=== PATIENT | female | born 1975 | race Caucasian/White ===

== ENCOUNTER 2018-11-06 08:00 | Inpatient (IN) | payer BC ==
[2018-11-14 13:29] VITALS: BMI 26.6
[2018-11-15] MEDS ORDERED: BUPIVACAINE LIPOSOME/PF (EXPAREL) 266 MG/20 ML VIAL ONE ×2 (12:43→14:09)
[2018-11-15] MEDS ORDERED: BUPIVACAINE HCL/PF 0.25% (2.5MG/ML) 10 ML VIAL ONE (12:44)
[2018-11-15] MEDS ORDERED: HEPARIN NA (PORCINE) 5,000 UNITS/ML 1ML VIAL ONE (12:44)
[2018-11-15] MEDS ORDERED: ceFAZolin SODIUM 1 GM VIAL IVPB ONE ×3 (13:50→14:50)
[2018-11-15] MEDS ORDERED: VANCOMYCIN 1,000 MG VIAL (RESTRICTED TO ID ONLY) IVPB ONE (14:05)
[2018-11-15] MEDS ORDERED: BUPIVACAINE HCL/PF 0.5% (5MG/ML) 10 ML VIAL ONE ×2 (14:09→14:36)
[2018-11-15] MEDS ORDERED: MIDAZOLAM HCL 2 MG/2 ML SINGLE DOSE VIAL ONE ×2 (14:13)
[2018-11-15] MEDS ORDERED: MORPHINE 5 MG/10 ML AMP - FOR COMPOUNDING USE ONLY ONE (14:25)
[2018-11-15] MEDS ORDERED: PROPOFOL 20 ML ONE ×15 (14:27→15:47)
[2018-11-15] MEDS ORDERED: LIDOCAINE HCL/PF 2% SDV 5ML VIAL ONE (14:28)
[2018-11-15] MEDS ORDERED: ROCURONIUM BROMIDE 50 MG/5 ML VIAL ONE (14:28)
[2018-11-15] MEDS ORDERED: DESFLURANE GAS 240 ML BOTTLE IH ONE (14:30)
[2018-11-15] MEDS ORDERED: VANCOMYCIN 1,000 MG VIAL (RESTRICTED TO ID ONLY) ONE (15:04)
[2018-11-15] MEDS ORDERED: ceFAZolin SODIUM 1 GM VIAL ONE ×2 (15:04→17:55)
[2018-11-15] MEDS ORDERED: DEXAMETHASONE SOD PHOSPHATE 4 MG/1 ML VIAL ONE (15:04)
[2018-11-15] MEDS ORDERED: ONDANSETRON 4 MG/2 ML VIAL ONE (15:04)
[2018-11-15] MEDS ORDERED: morphine SULFATE/Preservative Free 0.5 MG/ML (1cc Syringe) IT ONE (15:24)
[2018-11-15] MEDS ORDERED: ONDANSETRON 4 MG/2 ML VIAL IVPUSH PRN ×3 (15:24→18:51)
[2018-11-15] MEDS ORDERED: NALOXONE HCL 0.4 MG/ML VIAL IVPUSH PRN (15:24)
[2018-11-15] MEDS ORDERED: ACETAMINOPHEN 325 MG TABLET (FP) PO SCH (15:30)
[2018-11-15] MEDS ORDERED: LACTATED RINGERS SOLUTION 1,000 ML IV SCH (15:30)
[2018-11-15] MEDS ORDERED: GLYCOPYRROLATE 0.2 MG/1 ML VIAL ONE (16:41)
[2018-11-15] MEDS ORDERED: NEOSTIGMINE METHYLSULFATE 0.5 MG/1 ML - 10 ML MDV ONE (16:41)
--- NOTE | 2018-11-15 17:42 | PN ---
Progress Note (short form) - Note Progress Note: 43F POD #0 s/p: 1. Removal of L5-S1 hardware 2. Inspection of fusion mass 3. L4, L5, S1 osteotomies (facetectomies) 4. L4-L5 discectomy 5. L4-L5 posterior lumbar interbody fusion 6. L4-L5 insertion biomechanical devices 7. L4-S1 posterior instrumentation 8. L4-S1 posterolateral arthrodesis 9. Bone allograft 11. Bone autograft 12. Bone marrow aspiration 13. Complex wound closure (20cm) -Admit to ICU post-op. -Pain control: patient received pre-op TLIP block w/Exparel; OK to use DIESEL MECHANIC if needed; transition to oral analgesia post-op; NO NSAID's. -DVT PPx: -Mechanical only: GEN's, SCD's. -Chemical: None. -Incentive spirometry q15 min. -NPO until flatus. -Viera care; d/c when ambulating. -Post-op Ancef x 3 doses. -PT/OT/Rehab, OOB. -WBAT B/L LE. -No bending, lifting (>5 lbs), or twisting for 9-12 months. -Care per ICU & medical hospitalist Dr. Denny. -Discharge planning: f/u 7-10 days after discharge [facility]; call for appointment; . -Will follow. Jose Alberto Mendez MD (Orthopaedic Surgery).
--- NOTE | 2018-11-15 17:48 | OP ---
Operative Note - Note: Operative Date: 11/15/18 Pre-Operative Diagnosis: 1. 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 2. Multi-level lumbar spinal stenosis with neurogenic claudication. 3. 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 4. Weakness with fall risk. 5. Segmental instability lumbar spine. Severity of illness: 4 Operation: 1. Removal of L5-S1 hardware. 2. Inspection of fusion mass. 3. L4, L5, S1 osteotomies (facetectomies). 4. L4-L5 discectomy. 5. L4-L5 posterior lumbar interbody fusion. 6. L4-L5 insertion biomechanical devices. 7. L4-S1 posterior instrumentation. 8. L4-S1 posterolateral arthrodesis. 9. Bone allograft. 11. Bone autograft. 12. Bone marrow aspiration. 13. Complex wound closure (20cm) Findings: Absent anal sphincter signals post-position. Decreased B/L quadriceps & TA signals pre-op. Increased B/L quadriceps & TA signals post-op. Post-Operative Diagnosis: Same as Pre-op Surgeon: Jose Alberto Mendez Service Technician: Edilberto Mendez Anesthesiologist/[employer]: Erma Pringle Anesthesia: General, Spinal, Local Specimens Removed: L4-L5 disc Estimated Blood Loss (mls): 500 Blood Volume Replaced (mls): 125 (Cell saver) Fluid Volume Replaced (mls): 2,100 (Crystalloid) Operative Report Dictated: Yes
[2018-11-15] MEDS ORDERED: FLUCONAZOLE 150 MG TABLET PO ONE (19:14)
[2018-11-15] MEDS: ACETAMINOPHEN 1000 MG/100 ML VIAL (NON FORMULARY) IVPB SCH (19:30)
[2018-11-15] MEDS ORDERED: ACETAMINOPHEN INJECTION 100 ML IVPB ONE (19:35)
[2018-11-15] MEDS: LACTATED RINGERS SOLUTION 1,000 ML IV SCH (20:30)
--- NOTE | 2018-11-15 20:55 | HP ---
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 came in for surgery with Dr Mendez History Source: Patient Limitations to Obtaining History: No Limitations - Past Medical History ...LMP: 11/03/18 - Smoking History Smoking history: Never smoked Have you smoked in the past 12 months: No - Alcohol/Substance Use Hx Alcohol Use: No Home Medications - Allergies Allergies/Adverse Reactions: Allergies Allergy/AdvReac Type Severity Reaction Status Date / Time dog dander Allergy Verified 11/14/18 13:49 No Known Drug Allergies Allergy Verified 11/14/18 13:17 pollen extracts Allergy Verified 11/14/18 13:49 - Home Medications Home Medications: Ambulatory Orders Acetaminophen [Tylenol -] 500 mg PO Q4H PRN 11/14/18 Cyclobenzaprine HCl [Flexeril 10 mg] 10 mg PO BID PRN 11/14/18 Docusate Sodium [Dok] 100 mg PO PRN PRN 11/14/18 Gabapentin 600 mg PO HS 11/14/18 Oxycodone HCl/Acetaminophen [Oxycodone-Acetaminophen 5-325] 1 each PO PRN PRN Sennosides [Senna] 8.6 mg PO HS 11/14/18 Tramadol HCl 1 - 2 tab PO PRN PRN 11/14/18 Review of Systems - Review of Systems Constitutional: reports: No Symptoms Eyes: reports: No Symptoms HENT: reports: No Symptoms Neck: reports: No Symptoms Cardiovascular: reports: No Symptoms Respiratory: reports: No Symptoms Gastrointestinal: reports: No Symptoms Genitourinary: reports: Discharge Breasts: reports: No Symptoms Reported Musculoskeletal: reports: Back Pain Integumentary: reports: No Symptoms Neurological: reports: No Symptoms Endocrine: reports: No Symptoms Hematology/Lymphatic: reports: No Symptoms Psychiatric: reports: No Symptoms Physical Examination Vital Signs: Vital Signs Temperature 98.3 F 11/15/18 13:13 Pulse Rate 75 11/15/18 13:13 Respiratory Rate 18 11/15/18 13:13 Blood Pressure 120/70 11/15/18 13:13 O2 Sat by Pulse Oximetry (%) 99 11/15/18 13:20 Constitutional: Yes: Well Nourished Eyes: Yes: WNL HENT: Yes: WNL Neck: Yes: WNL Cardiovascular: Yes: WNL Respiratory: Yes: WNL Gastrointestinal: Yes: WNL Renal/: Yes: WNL Musculoskeletal: Yes: Back Pain Extremities: Yes: WNL Edema: No Integumentary: Yes: WNL Wound/Incision: Yes: Clean/Dry, Well Approximated Neurological: Yes: WNL Assessment/Plan 43 yo lady S/P Removal of L5-S1 hardware, Inspection of fusion mass, L4, L5, S1 osteotomies (facetectomies), L4-L5 discectomy, L4-L5 posterior lumbar interbody fusion, L4-L5 insertion biomechanical devices, L4-S1 posterior instrumentation , L4-S1 posterolateral arthrodesis., Bone allograft, Bone autograft. Bone marrow aspiration. cont pain management. incentive spirometry. -GI, DVT prophylaxis. -fungal vaginosis: one dose diflucan ordered. -oral diet when more awake -PT/OT/OOB as tolerated -AM labs -DC planned for tomorrow.
[2018-11-15] MEDS: oxyCODONE HCL 10 MG SUSTAINED ACTING TABLET PO SCH (22:34)
--- NOTE | 2018-11-15 23:32 | PN ---
Progress Note (short form) - Note Progress Note: Service: ICU resident 43yo F with chronic back pain and neurological deficits who presents to ICU s/p Lumbar spine procedure performed by Dr. Mendez. Pt prior to surgery had difficulty with leg movements, genitalia parasympathetics and significant parasthesias. Intraoperatively pt had reported 500cc EBL with 125 Cellsaver and ~2L IVF. Post-operatively pt does not have any complaints and it was noted that she had increased signal intensity of her quadriceps and anterior tibialis. In addition pt was noted to have vaginal candidiasis and was ordered one oral Diflucan dose at this point. A/P: S/p Lumbar spine procedure Fungal vaginosis Pain control per BMET PRN and transition to oral agents NPO until flatus Continue post-op Ancef for 3 more doses per SCIP protocol OOB as tolerated Diflucan 150mg PO x1 D/C gaviria and TOV when able to ambulate LR@75cc/hr CBC, CMP in AM SCDs only Will continue to monitor in immediate postoperative setting.
[2018-11-16] MEDS ORDERED: CEFAZOLIN 1 GM/D5W 1 GM/50 ML BAG IVPB SCH (01:00)
[2018-11-16] MEDS ORDERED: PT OWN MED DRAWER 7, Y5N ONE (01:11)
[2018-11-16] MEDS: ACETAMINOPHEN 1000 MG/100 ML VIAL (NON FORMULARY) IVPB SCH ×2 (02:05→11:07)
[2018-11-16] MEDS ORDERED: oxyCODONE HCL 5 MG TABLET ONE (02:17)
[2018-11-16] MEDS ORDERED: oxyCODONE HCL 5 MG TABLET PO ONE (02:24)
[2018-11-16] MEDS ORDERED: ceFAZolin SODIUM 1 GM VIAL ONE ×3 (02:28→17:32)
[2018-11-16] MEDS ORDERED: DEXTROSE 5%-WATER - 50 ML IVPB ONE ×3 (02:28→17:32)
[2018-11-16] MEDS: CEFAZOLIN 1 GM in DEXTROSE 5%-WATER - 50 ML IVPB SCH ×3 (02:32→17:33)
[2018-11-16 06:36] LABS: HEMATOCRIT 32.1 % (32.4-45.2); HEMOGLOBIN 10.7 GM/dL (10.7-15.3); MCH 30.8 pg (25.7-33.7); MCHC 33.5 g/dl (32.0-36.0); MEAN CELL VOLUME 92.1 fl (80-96); MEAN PLT VOLUME 9.6 fl (7.5-11.1); PLATELET COUNT 191 K/MM3 (134-434); RBC 3.48 M/mm3 (3.60-5.2); RDW 12.7 % (11.6-15.6); WHITE BLOOD COUNT 16.5 K/mm3 (4.0-10.0)
[2018-11-16 06:56] LABS: BLOOD UREA NITROGEN 7.5 mg/dL (7-18); CALCIUM 8.2 mg/dL (8.5-10.1); CREATININE 0.6 mg/dL (0.55-1.3); POTASSIUM 4.1 mmol/L (3.5-5.1)
--- NOTE | 2018-11-16 08:24 | PN ---
Physical Exam: SUBJECTIVE: Patient seen and examined at bedside- no acute events overnight; patient states she already feels better post surgery- she has a lot less neurological symptoms- is having slight back pain still but improving; did have a little shortness of breath with the oxycodone- denies CP/N/V fevers or chills OBJECTIVE: Vital Signs Period Temp Pulse Resp BP Sys/Bhardwaj Pulse Ox Last 24 Hr 98.2 F-99 F 69-94 11-19 81-120/43-70 99-100 GENERAL: The patient is awake, alert, and fully oriented, in no acute distress. EYES: PEERLA: EOMI; no scleral icterus NECK: no JVD; no lmyphadenopathy LUNGS:CTA B/L; no rales, rhonchi or wheezing. HEART: Regular rate and rhythm, S1, S2 without murmur, rub or gallop. ABDOMEN: Soft, slight suprapubic tenderness upon palpation; +BS in all 4 quadrants EXTREMITIES: 2+ pulses, warm, well-perfused, no edema moving all extremities SCDS in place. NEUROLOGICAL: Cranial nerves II through XII grossly intact. senstion intact; 5/ 5 strength in extremities Normal speech, PSYCH: Normal mood, normal affect. SKIN: Warm, dry, normal turgor, no rashes or lesions noted Laboratory Results - last 24 hr 11/15/18 11/15/18 11/15/18 12:42 12:42 15:15 WBC RBC Hgb Hct MCV MCH MCHC RDW Plt Count MPV Sodium Potassium Chloride Carbon Dioxide Anion Gap BUN Creatinine Est GFR (CKD-EPI)AfAm Est GFR (CKD-EPI)NonAf Random Glucose Calcium Beta HCG, Quant < 1.0 Blood Type O POSITIVE O POSITIVE Antibody Screen Negative 11/16/18 11/16/18 05:20 05:20 WBC 16.5 H RBC 3.48 L Hgb 10.7 Hct 32.1 L MCV 92.1 MCH 30.8 MCHC 33.5 RDW 12.7 Plt Count 191 MPV 9.6 Sodium 138 Potassium 4.1 Chloride 105 Carbon Dioxide 27 Anion Gap 6 L BUN 7.5 Creatinine 0.6 Est GFR (CKD-EPI)AfAm 130.30 Est GFR (CKD-EPI)NonAf 112.42 Random Glucose 104 Calcium 8.2 L Beta HCG, Quant Blood Type Antibody Screen Active Medications Generic Name Dose Route Start Last Admin Trade Name Freq PRN Reason Stop Dose Admin Acetaminophen 1,000 mg 11/15/18 19:00 11/16/18 02:05 Ofirmev Injection - IVPB 11/16/18 11:01 1,000 mg Q8H ANAMIKA Administration Diphenhydramine HCl 25 mg 11/15/18 15:24 11/15/18 19:00 Benadryl Injection - IVPUSH 25 mg ONCE PRN Administration FOR ITCHING Fentanyl 50 mcg 11/15/18 20:26 11/15/18 20:08 Sublimaze Injection - IVPUSH 50 mcg [id number] PRN Administration PAIN-PACU ORDER X 4 DOSES ONLY Lactated Ringer's 1,000 mls @ 125 mls/hr 11/15/18 19:00 11/15/18 20:30 Lactated Ringers Solution IV 0 mls ASDIR ANAMIKA Administration Cefazolin Sodium 1 gm/ 50 mls @ 100 mls/hr 11/16/18 02:15 11/16/18 02:32 Dextrose IVPB 11/17/18 02:14 100 mls/hr Q8H ANAMIKA Administration Naloxone HCl 0.4 mg 11/15/18 15:24 Narcan - IVPUSH ONCE PRN Sedation Ondansetron HCl 4 mg 11/15/18 18:51 Zofran Injection IVPUSH Q6H PRN NAUSEA AND/OR VOMITING Oxycodone HCl 5 mg 11/16/18 15:24 Roxicodone - PO Q3H PRN Mild Pain 1-3 Oxycodone HCl 10 mg 11/16/18 15:24 Roxicodone - PO Q3H PRN Moderate Pain 4-6 Oxycodone HCl 10 mg 11/15/18 22:00 11/15/18 22:34 Oxycontin - PO 10 mg BID ANAMIKA Administration ASSESSMENT/PLAN:
--- NOTE | 2018-11-16 09:07 | PN ---
Progress Note (short form) - Note Progress Note: Anesthesia postop note 43 y/o F s/p GA, TLIP, duramorph for L4-S1 decompression and fusion POD#1, vss, aaox3, some pain. No anesthesia complications.
--- NOTE | 2018-11-16 09:32 | OP ---
Date of Operation: 11/15/2018 Pre-Operative Diagnosis: 1. L4-L5 intervertebral disc disorder with bilateral lower extremity radiculopathy. 2. L4-L5, L5-S1 spinal stenosis with neurogenic claudication. 3. Prior L5-S1 anterior lumbar interbody fusion w/posterior percutaneous L5- S1 instrumentation. 4. Chronic low back pain 5. 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 6. Weakness with fall risk. 7. Segmental instability lumbar spine. Post-Operative Diagnosis: 1. L4-L5 intervertebral disc disorder with bilateral lower extremity radiculopathy. 2. L4-L5, L5-S1 spinal stenosis with neurogenic claudication. 3. Prior L5-S1 anterior lumbar interbody fusion w/posterior percutaneous L5- S1 instrumentation. 4. Chronic low back pain 5. 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 6. Weakness with fall risk. 7. Segmental instability lumbar spine. Procedure Performed: 1. Removal of prior L5-S1 instrumentation. (81597) 2. Inspection of fusion mass. (76102) 3. L4, L5, S1 laminectomies and facetectomies. (15682-13, 20450-86 x 2) 4. L4-L5 posterolateral arthrodesis & posterior lumbar interbody fusion (PLIF ). (14269) 5. L4-L5 insertion biomechanical device. (39864) 6. Posterolateral arthrodesis L5-S1. (99293-71-86) 7. L4-S1 posterior instrumentation. (42978-44-96) 8. Morselized bone autograft. (25471) 9. Morselized bone allograft. (20494) 10. Bone marrow aspiration for bone grafting. (04218) 11. Complex wound closure, 4 layers, 20cm. (31956 x 3) Surgeon: Jose Alberto Mendez M.D. [employer] Program Coordinator: Edilberto Mendez M.D. Anesthesiologist: Erma Pringle M.D. Anesthesia: General, Local (TLIP block). Position: Prone. Incision: Midline. Specimens Removed: L4-L5 disc, L5-S1 hardware. Drains: None. Estimated Blood Loss: 500cc. Intravenous Fluid: 2100cc crystalloid. Transfusions: 125cc Cell Saver. Complications: None. Bacteriology: None. Closure: No. 1 Vicryl, 2-0 Biosyn absorbable sutures. Indications: The patient was indicated for the above listed surgical procedure due to progressive neurological and functional decline that limits her mobility and furthermore her ability to attend to his activities of daily living. The patient was identified in the holding area by her armband. A long discussion was held with the patient (in the presence of his family) regarding the risks, benefits, and alternatives of the above-listed procedure. The risks include, but are not limited to: Pain, bleeding, infection, damage to surrounding structures (including nerves, blood vessels, skin, ligaments, tendons, and bone), wound complications, failure of hardware/implants/reduction , need for further surgery, blood clots, myocardial infarction, cerebrovascular injury, pulmonary embolism, anesthesia complications, limp, numbness, paresthesias, loss of function, and . Benefits may include reduction of: back pain, radiculopathy, neurogenic claudication, and improved overall mobility and function. Alternatives include no surgery. All questions were answered. The patient understood and agreed to the procedure. Informed consent was obtained, witnessed, and verified. The patient's lumbar spine was marked. She was then assessed by the anesthesia team who proceeded to administer a bilateral imaging-guided TLIP block to facilitate post-operative pain management. The patient was then taken to the operating room after being seen by the anesthesia and nursing staff. Procedure: The patient was brought into the operating room, where anesthesia was then administered. This included 2g IV Ancef, 1g IV Vancomycin, and 1g IV tranexamic acid (TXA). A time-out was done led by , the attending surgeon. An indwelling Viera catheter was successfully inserted by the nursing team. The intra-operative neuromonitoring team provided prepositioning baseline motor and sensory readings. There were absent signals noted in anal sphincter monitoring. The patient was then safely placed in a prone position with all bony prominences well-padded on a [facility] O[facility] spine table with strict attention paid to maintenance of sagittal vertical alignment. Retroversion of the pelvis was avoided by ensuring that the hips were extended. This also ensured appropriate lumbar lordosis. The arms were placed on well-padded arm boards and maintained with standard forward flexion, abduction, and external rotation of the shoulders , and flexion of the elbows. Special attention was given to the safe positioning of the cervical spine. The patients eyes, breasts, and belly were all free. The table was placed in 6 degrees of reverse Trendelenburg position to avoid ophthalmic vein congestion. Post-positional motor and sensory readings confirmed no change. A C-arm fluoroscopy unit was positioned perpendicularly to the table and maintained at the level of the upper thoracic spine, except when needed. The skin was prepped in standard, sterile fashion using betadine prep & scrub, wiped off with alcohol, and DuraPrep applied. Standard window draping was utilized, and this included draping of the C-arm. Appropriate pre-operative imaging, including lumbar spine x-rays, CT, and MRI, were available throughout the case for intraoperative evaluation. Verification of the intended surgical levels was confirmed with a lateral fluoroscopic x-ray using a Burnett elevator for localization. A time-out was repeated, and the case began. A midline skin incision was performed from the tip of the spinous process of L4 to the tip of the spinous process of S2. Using electrocautery, the dissection was carried down through subcutaneous fat and then through the midline of the lumbodorsal fascia down to the tips of the spinous processes. A subperiosteal dissection was performed using a combination of unipolar electrocautery and Burnett elevation. This was carried down the spinous process, over the laminae, across the facet joints, and out over the tips of the transverse processes from L4 to S1. The L5-S1 hardware was exposed bilaterally. In this dissection, the capsules of the L3-L4 joints were preserved bilaterally. The L4-L5 joint capsules were pathologically hypertrophic. They were ablated using electrocautery and resected with rongeurs. The posterolateral dissection was performed with attention to hemostatis by utilizing both unipolar as well as bipolar electrocautery. The posterolateral space was packed with Ray-Yasmine sponges. A rongeur was used to grasp the L5 spinous process and demonstrate the stability of the L5-S1 fusion. This completed the inspection of the L5-S1 fusion mass. The L5-S1 hardware was then removed. A rongeur was used to grasp the L4 spinous processes and demonstrate the mobility of the L4-L5 segments. This confirmed the location of the last mobile segment. The bilateral L4, L5, and S1 laminae were resected utilizing Kerrison rongeur upcuts combined with Leksell rongeurs. This completed the L1-S1 laminectomies. All harvested bone was saved, freed of fibrous tissue, and milled with a bone mill. Next, an osteotome was utilized to longitudinally split the pars interarticularis and the inferior facets of L4, and L5 bilaterally. The osteotomized bone was imploded towards the thecal sac, which was protected with cottonoid patties, and removed with either a Leksell rongeur or a Kerrison ronguer. Upon removal of all osteotomized bone, we gained clear and easy access to the superior facets of L5, and S1, where tight recess stenosis was appreciated. The exiting L4, L5, & S1 nerve roots were identified and protected. The medial edge of the superior facets was resected at each level bilaterally using Kerrison rongeurs. This freed the theca and the exiting nerve roots at each level. The foraminae, bilaterally, at L4-L5, and L5-S1 were inspected utilizing an angled ball-tipped probe and proved to be generously capacious in accommodating the unobstructed exit of the nerve root at that level. The crowding of the convoluted ligamentum flavum and posterior facet joint capsules contributed to the recess stenosis. These structures were excised using Kerrison upcuts, thus fully completing the decompression. All retractors were relaxed and removed. A Jamshidi needle was delivered into the left posterior ileum through the same surgical incision. Via this, 60 mL of bone marrow was aspirated and spun down to isolate a mix of osteoprogenitor and hematopoietic cells. Retractors were inserted once again. At L4-L5, the theca was gently mobilized from right to left and from left to right using a nerve root retractor. In order to do this, we ensured that each nerve root was completely free in its neural foramen as previously described. With the disc clearly visualized, large epidural veins were cauterized using bipolar electrocautery. The disc was approached from the right side and using a #11-blade, an cruciate annulotomy was performed. [place]yenne were passed into the disc at each level. The disc was morselized with rotation of the cheyenne, and then extricated with pituitary rongeurs and saved for lab evaluation. The end plates were freed of all soft tissues using a serrated curette. Milled bone autograft was packed into the interbody space, thus completing an anterior arthrodesis of the intervertebral space. A size 11mm x 22mm Fortilink Tetrafuse spacer was inserted. The spacer was packed with bone autograft prior to insertion. The cage was placed in a Press-Fit type manner where the cheyenne were one size under the actual size of the spacer placed as outlined above. An interference fit of the cage assured as we relied on ligamentotaxis for fixation. No dural problems were encountered, and the dura appeared healthy throughout the procedure. At this point, the neuromonitoring revealed no complications. In fact, there was an improvement in bilateral lower extremity neural monitoring readings relative to baseline reported at this point. This included anal sphincter tone readings. Pedicle screws were then seated bilaterally from L4-S1 utilizing standard anatomical guidelines: IE the intersection of the horizontal axis of the transverse process with the longitudinal axis of the inferior facet at each level. Utilizing lateral fluoroscopic x-ray, a 4.5mm pneumatic drill was passed via the pedicle at each level, into the corresponding vertebral body. Imaging allowed us to ensure that the drill screw was delivered along the undersurface of each endplate. This was the best quality bone fixation at each level. Each pedicle was palpated with a ball tip feeler. No breech of anterior, medial , lateral, caudal or cranial bone bed was noted. Each screw was reevaluated with lateral and anteroposterior fluoroscopy as well as intraoperative neuromonitoring. All intraoperative neuromonitoring readings were at or above the safe passage of 10 mA. The L4 and L5 pedicles were inspected and palpated using an angled ball-tipped probe. There was no evidence of screw breach involving any of the pedicles. Next, two rods were inserted and fixed into the screw heads with the appropriate screw caps. A torque-limiting device completed the fixation of each cap into each screw head. No crosslink utilized. The muscle was gently retracted off the intertransverse plane. All packing sponges were removed. Milled/morselized autologous bone, with morselized allograft bone expansion, was combined with the bone marrow aspiration and used for the posterolateral arthrodesis along the intertransverse plane from L4 to S1. The recipient bone bed was denuded of all soft tissue. No burring was necessary due to healthy bleeding of each bony surface, including the posterior surface of the transverse processes and the lateral surface of the pars interarticularis at each level. This completed the posterolateral arthrodesis. Throughout the case, the wound was irrigated with normal saline solution to keep the exposed soft tissues hydrated. The retractors were released every 15 to 20 minutes to enable adequate blood flow to the paraspinal muscles. These muscles were gently massaged upon release of the retractors to further facilitate blood flow. At the end of the procedure, fragmented and compromised paraspinal muscle was superficially debrided. The dura was inspected and was completely intact. Closure: The paraspinal muscles and lumbodorsal fascia overlying the paraspinal musculature was closed in the midline using #1 Vicryl sutures in simple interrupted fashion. Due to excellent hemostasis, no drain was utilized. The wound was repeatedly thoroughly irrigated with normal saline solution. The subcutaneous tissues were closed using #1 Vicryl sutures. The skin was closed using a running 2-0 Biosyn absorbable suture. This completed a complex, 4-layered wound closure of approximately 20cm. The skin was then painted with benzoin and Steri-Strips were applied perpendicular to the incision. A Primapore adhesive Telfa island dressing was applied over the Steri-Strips and a sterile, compressive dressing was applied using 4x4 gauze pads. The skin was painted with DuraPrep. The wound was then sealed with adhesive Ioban. Final AP & lateral fluoroscopic analysis revealed L4-S1 instrumentation that was intact & in place. The L4-L5 disc height was reconstituted with visibly patent neuroforaminae. There was no fluoroscopic evidence of retained sponges or needles. The sponge and needle counts were correct at the end of the case and I, the attending surgeon, was present and scrubbed throughout the case. The patient was transferred to a hospital bed. All neural monitoring leads were removed. The patient was then transferred to the recovery room in stable condition, as per the anesthesia team, having tolerated the procedure well. Overall comment: Operation went extremely well with no complications. All appropriate goals were achieved in the execution of this operative event. MD RG [id number]
--- NOTE | 2018-11-16 10:12 | PN ---
Progress Note, Physician Chief Complaint: back pain - Current Medication List Current Medications: Active Medications Acetaminophen (Ofirmev Injection -) 1,000 mg IVPB Q8H [facility] Stop: 11/16/18 11:01 Last Admin: 11/16/18 02:05 Dose: 1,000 mg Diphenhydramine HCl (Benadryl Injection -) 25 mg IVPUSH ONCE PRN PRN Reason: FOR ITCHING Last Admin: 11/15/18 19:00 Dose: 25 mg Fentanyl (Sublimaze Injection -) 50 mcg IVPUSH [id number] PRN PRN Reason: PAIN-PACU ORDER X 4 DOSES ONLY Last Admin: 11/15/18 20:08 Dose: 50 mcg Gabapentin (Neurontin -) 300 mg PO TID [facility] Lactated Ringer's (Lactated Ringers Solution) 1,000 mls @ 125 mls/hr IV ASDIR [facility] Last Admin: 11/15/18 20:30 Dose: 0 mls Cefazolin Sodium 1 gm/ (Dextrose) 50 mls @ 100 mls/hr IVPB Q8H [facility] Stop: 11/17/18 02:14 Last Admin: 11/16/18 02:32 Dose: 100 mls/hr Naloxone HCl (Narcan -) 0.4 mg IVPUSH ONCE PRN PRN Reason: Sedation Ondansetron HCl (Zofran Injection) 4 mg IVPUSH Q6H PRN PRN Reason: NAUSEA AND/OR VOMITING Oxycodone HCl (Roxicodone -) 5 mg PO Q3H PRN PRN Reason: Mild Pain 1-3 Oxycodone HCl (Roxicodone -) 10 mg PO Q3H PRN PRN Reason: Moderate Pain 4-6 Oxycodone HCl (Oxycontin -) 10 mg PO BID [facility] Last Admin: 11/15/18 22:34 Dose: 10 mg - Objective Vital Signs: Vital Signs Temperature 98.4 F 11/16/18 05:52 Pulse Rate 69 11/16/18 05:52 Respiratory Rate 11 11/16/18 05:52 Blood Pressure 95/43 L 11/16/18 05:52 O2 Sat by Pulse Oximetry (%) 100 11/15/18 21:00 Constitutional: Yes: Well Nourished, Anxious, Mild Distress Eyes: Yes: WNL HENT: Yes: WNL Neck: Yes: WNL Cardiovascular: Yes: WNL Respiratory: Yes: WNL Gastrointestinal: Yes: WNL Genitourinary: Yes: WNL Musculoskeletal: Yes: Back Pain Extremities: Yes: WNL Edema: No Peripheral Pulses WNL: Yes Labs: CBC, BMP 11/16/18 05:20 11/16/18 05:20 Assessment/Plan 43 yo lady S/P Removal of L5-S1 hardware, Inspection of fusion mass, L4, L5, S1 osteotomies (facetectomies), L4-L5 discectomy, L4-L5 posterior lumbar interbody fusion, L4-L5 insertion biomechanical devices, L4-S1 posterior instrumentation , L4-S1 posterolateral arthrodesis., Bone allograft, Bone autograft. Bone marrow aspiration. cont pain management. incentive spirometry. Pt still C/O uncontrolled pain -hypotension. likely exacerbated by pain meds. on IV fluids. -GI, DVT prophylaxis. -fungal vaginosis: one dose diflucan ordered. -oral diet when more awake -PT/OT/OOB as tolerated -ICU care appreciated.
[2018-11-16] MEDS: oxyCODONE HCL 10 MG SUSTAINED ACTING TABLET PO SCH ×2 (10:58→21:11)
--- NOTE | 2018-11-16 11:10 | PN ---
Teaching Attending Note Name of Resident: Tanya Cyr ATTENDING PHYSICIAN STATEMENT I saw and evaluated the patient. I reviewed the resident's note and discussed the case with the resident. I agree with the resident's findings and plan as documented. SUBJECTIVE: Pt seen and examined in the ICU. Still with significant pain. No fevers or chills. No nausea. OBJECTIVE: Vital Signs Period Temp Pulse Resp BP Sys/Bhardwaj Pulse Ox Last 24 Hr 98.2 F-99 F 69-94 04-24 81-120/43-70 99-100 Intake & Output 11/13/18 11/14/18 11/15/18 11/16/18 23:59 23:59 23:59 23:59 Intake Total 2525 1250 Output Total 2400 200 Balance 125 1050 Weight 72.575 kg 72.575 kg Gen: NAD at rest Heart: RRR Lung: decreased breath sounds at the bases Abd: soft, nontender Ext: no edema CBC, BMP 11/16/18 05:20 11/16/18 05:20 Active Medications Diphenhydramine HCl (Benadryl Injection -) 25 mg IVPUSH ONCE PRN PRN Reason: FOR ITCHING Last Admin: 11/15/18 19:00 Dose: 25 mg Fentanyl (Sublimaze Injection -) 50 mcg IVPUSH [id number] PRN PRN Reason: PAIN-PACU ORDER X 4 DOSES ONLY Last Admin: 11/15/18 20:08 Dose: 50 mcg Gabapentin (Neurontin -) 300 mg PO TID [facility] Lactated Ringer's (Lactated Ringers Solution) 1,000 mls @ 125 mls/hr IV ASDIR [facility] Last Admin: 11/15/18 20:30 Dose: 0 mls Cefazolin Sodium 1 gm/ (Dextrose) 50 mls @ 100 mls/hr IVPB Q8H [facility] Stop: 11/17/18 02:14 Last Admin: 11/16/18 11:02 Dose: 100 mls/hr Naloxone HCl (Narcan -) 0.4 mg IVPUSH ONCE PRN PRN Reason: Sedation Ondansetron HCl (Zofran Injection) 4 mg IVPUSH Q6H PRN PRN Reason: NAUSEA AND/OR VOMITING Oxycodone HCl (Roxicodone -) 5 mg PO Q3H PRN PRN Reason: Mild Pain 1-3 Oxycodone HCl (Roxicodone -) 10 mg PO Q3H PRN PRN Reason: Moderate Pain 4-6 Oxycodone HCl (Oxycontin -) 10 mg PO BID [facility] Last Admin: 11/16/18 10:58 Dose: 10 mg ASSESSMENT AND PLAN: Lumbar Spinal Stenosis with Radiculopathy and Neurogenic Claudication s/p L5-S1 BRETT/L4-L5 PLIF/Biomechanical Device Insertion - pain control - incentive spirometry - PO when flatus - d/c gaviria when OOB - PT/rehab - DVT prophylaxis - can monitor on floor
[2018-11-16] MEDS: LACTATED RINGERS SOLUTION 1,000 ML IV SCH ×2 (12:44→19:45)
--- NOTE | 2018-11-16 12:47 | PN ---
Physical Exam: SUBJECTIVE: Patient seen and examined at bedside- patient states that she is still having some back pain however its improving- her radicular symptoms are improving as well; she states that she is having suprapubic tenderness mainly due to the discomfort of the gaviria; she denies any chest pain-however was having some dyspnea after the oxycodone; no nausea/vomiting/fevers or chills OBJECTIVE: Vital Signs Period Temp Pulse Resp BP Sys/Bhardwaj Pulse Ox Last 24 Hr 98.2 F-99 F 69-94 11-19 81-120/43-70 99-100 GENERAL: The patient is awake, soft spoken; oriented; NAD EYES: PEERLA; EOMI; no scleral icterus . NECK: no JVD; no lymphadenopathy LUNGS: CTA B/L; no rales, rhochi or wheezing HEART: Regular rate and rhythm, S1, S2 without murmur, rub or gallop. ABDOMEN: Soft, slight suprapubic tenderness, nondistended, normoactive bowel sounds, no guarding, no rebound, no hepatosplenomegaly, no masses. EXTREMITIES: 2+ pulses, warm, well-perfused, no edema, SCDS intact. NEUROLOGICAL: Cranial nerves II through XII grossly intact. Normal speech, moving extremities though experiencing some back pain with movement PSYCH: Normal mood, normal affect. SKIN: Warm, dry, normal turgor, no rashes or lesions noted Laboratory Results - last 24 hr 11/15/18 11/15/18 11/15/18 12:42 12:42 15:15 WBC RBC Hgb Hct MCV MCH MCHC RDW Plt Count MPV Sodium Potassium Chloride Carbon Dioxide Anion Gap BUN Creatinine Est GFR (CKD-EPI)AfAm Est GFR (CKD-EPI)NonAf Random Glucose Calcium Beta HCG, Quant < 1.0 Blood Type O POSITIVE O POSITIVE Antibody Screen Negative 11/16/18 11/16/18 05:20 05:20 WBC 16.5 H RBC 3.48 L Hgb 10.7 Hct 32.1 L MCV 92.1 MCH 30.8 MCHC 33.5 RDW 12.7 Plt Count 191 MPV 9.6 Sodium 138 Potassium 4.1 Chloride 105 Carbon Dioxide 27 Anion Gap 6 L BUN 7.5 Creatinine 0.6 Est GFR (CKD-EPI)AfAm 130.30 Est GFR (CKD-EPI)NonAf 112.42 Random Glucose 104 Calcium 8.2 L Beta HCG, Quant Blood Type Antibody Screen Active Medications Generic Name Dose Route Start Last Admin Trade Name Freq PRN Reason Stop Dose Admin Diphenhydramine HCl 25 mg 11/15/18 15:24 11/15/18 19:00 Benadryl Injection - IVPUSH 25 mg ONCE PRN Administration FOR ITCHING Fentanyl 50 mcg 11/15/18 20:26 11/15/18 20:08 Sublimaze Injection - IVPUSH 50 mcg [id number] PRN Administration PAIN-PACU ORDER X 4 DOSES ONLY Gabapentin 300 mg 11/16/18 14:00 Neurontin - PO TID [facility] Lactated Ringer's 1,000 mls @ 125 mls/hr 11/15/18 19:00 11/15/18 20:30 Lactated Ringers Solution IV 0 mls ASDIR [facility] Administration Cefazolin Sodium 1 gm/ 50 mls @ 100 mls/hr 11/16/18 02:15 11/16/18 11:02 Dextrose IVPB 11/17/18 02:14 100 mls/hr Q8H [facility] Administration Naloxone HCl 0.4 mg 11/15/18 15:24 Narcan - IVPUSH ONCE PRN Sedation Ondansetron HCl 4 mg 11/15/18 18:51 Zofran Injection IVPUSH Q6H PRN NAUSEA AND/OR VOMITING Oxycodone HCl 5 mg 11/16/18 15:24 Roxicodone - PO Q3H PRN Mild Pain 1-3 Oxycodone HCl 10 mg 11/16/18 15:24 Roxicodone - PO Q3H PRN Moderate Pain 4-6 Oxycodone HCl 10 mg 11/15/18 22:00 11/16/18 10:58 Oxycontin - PO 10 mg BID [facility] Administration ASSESSMENT/PLAN: 43 yo lady S/P Removal of L5-S1 hardware, Inspection of fusion mass, L4, L5, S1 osteotomies (facetectomies), L4-L5 discectomy, L4-L5 posterior lumbar interbody fusion, L4-L5 insertion biomechanical devices, L4-S1 posterior instrumentation , L4-S1 posterolateral arthrodesis., #Neuro radicular symptoms have improved and patient is no longer experiencing as much numbness/tingling -stable; will assess daily #Cardio patient has been slightly hypotensive likely 2/2 pain meds and post-op fluid shifts -currently on LR @125mls/hr -will bolus if necessary -monitor hemodynamics; #MSK POD #1 -oxycodone 5/10 PRN for pain -zofran PRN for nausea -incentive spirometer -PT eval -will remove gaviria once out of bed -SCDS for ppx -NPO until flatus F/E/N LR @125mls/hr monitor electrolytes NPO until flatus DVT PPX: scds Problem List - Problems (1) S/P spinal surgery Code(s): Z98.890 - OTHER SPECIFIED POSTPROCEDURAL STATES Visit type - Emergency Visit Emergency Visit: Yes ED Registration Date: 11/15/18 Care time: The patient presented to the Emergency Department on the above date and was hospitalized for further evaluation of their emergent condition. - New Patient This patient is new to me today: Yes Date on this admission: 11/16/18 - Critical Care Critical Care patient: Yes Total Critical Care Time (in minutes): 35 Critical Care Statement: The care of this patient involved high complexity decision making to prevent further life threatening deterioration of the patient 's condition and/or to evaluate & treat vital organ system(s) failure or risk of failure.
[2018-11-16] MEDS ORDERED: DOCUSATE SODIUM 100 MG CAPSULE (FP) PO PRN (12:52)
[2018-11-16] MEDS ORDERED: SODIUM CHLORIDE 500 ML IV STA ×3 (13:51→20:39)
[2018-11-16] MEDS: GABAPENTIN 300 MG CAPSULE (FP) PO SCH ×2 (14:17→21:11)
[2018-11-16] MEDS ORDERED: oxyCODONE HCL 5 MG TABLET PO PRN ×4 (15:24→18:54)
[2018-11-16] MEDS ORDERED: HYDROmorphone HCl 2 MG/ML VIAL SQ PRN (18:49)
[2018-11-16] MEDS ORDERED: KETOROLAC TROMETHAMINE 30 MG/1 ML VIAL IVPUSH ONE (19:30)
--- NOTE | 2018-11-16 19:36 | PN ---
Progress Note (short form) - Note Progress Note: POD #1 Was pain free most of the day.Noleg pain original pain gone PROBLEM ?chest wall pain which occurred following being transferred back to bed ff PT Pain R lower chest wall. C/O pain as described All on the R side of chest and flank. Med parameters as per chart. Neuro At baseline All intact motor Wound not evaluated Too painfull PLAN Toradol for chest wall pain Rest of pain Mx with Dr Donovan and anaesthesia team
[2018-11-16] MEDS: diazePAM 5 MG TABLET PO PRN (20:19)
[2018-11-17] MEDS: diazePAM 5 MG TABLET PO PRN ×3 (03:20→18:25)
[2018-11-17] MEDS: GABAPENTIN 300 MG CAPSULE (FP) PO SCH ×3 (05:52→21:13)
[2018-11-17 05:58] LABS: HEMATOCRIT 28.5 % (32.4-45.2); HEMOGLOBIN 9.5 GM/dL (10.7-15.3); MCH 30.9 pg (25.7-33.7); MCHC 33.3 g/dl (32.0-36.0); MEAN CELL VOLUME 92.8 fl (80-96); MEAN PLT VOLUME 9.1 fl (7.5-11.1); RBC 3.07 M/mm3 (3.60-5.2); RDW 13.1 % (11.6-15.6); WHITE BLOOD COUNT 12.5 K/mm3 (4.0-10.0)
[2018-11-17 06:32] LABS: BLOOD UREA NITROGEN 8.4 mg/dL (7-18); CALCIUM 7.6 mg/dL (8.5-10.1); CREATININE 0.6 mg/dL (0.55-1.3); MAGNESIUM 2.2 mg/dL (1.8-2.4); PHOSPHOROUS 2.5 mg/dL (2.5-4.9); POTASSIUM 3.8 mmol/L (3.5-5.1)
[2018-11-17] MEDS ORDERED: PT OWN MED DRAWER 7, Y5N ONE (06:33)
[2018-11-17 07:56] LABS: PLATELET COUNT 149 K/MM3 (134-434)
--- NOTE | 2018-11-17 08:24 | PN ---
Physical Exam: SUBJECTIVE: Patient seen and examined at bedside- patient is still experiencing a lot of pain however she states that it is improved with the valium; she still has not passed flatus; she is having right sided flank pain but no longer having any chest wall pain and her leg/back pain is improving; denies CP/SOB/N/V OBJECTIVE: Vital Signs Period Temp Pulse Resp BP Sys/Bhardwaj Pulse Ox Last 24 Hr 98.5 F-99.4 F 76-100 12-22 93-109/37-63 100-100 GENERAL: The patient is awake, alert, oriented in slight acute distress EYES: PEERLA: EOMI; no scleral icterus . . NECK: no JVD; no lympahdenopathy LUNGS: CTA B/L; no rales, rhonchi or wheezing HEART: Regular rate and rhythm, S1, S2 without murmur, rub or gallop. ABDOMEN: Soft, nontender, nondistended, normoactive bowel sounds, no guarding, no rebound, no hepatosplenomegaly, no masses. EXTREMITIES: 2+ pulses, warm, well-perfused, no edema SCDS in place; moving all extremities . NEUROLOGICAL: Cranial nerves II through XII grossly intact. Normal speech, gait not observed. sensation intact throughout PSYCH: Normal mood, normal affect. SKIN: Warm, dry, normal turgor, no rashes or lesions noted Laboratory Results - last 24 hr 11/17/18 11/17/18 05:10 05:10 WBC 12.5 H RBC 3.07 L Hgb 9.5 L Hct 28.5 L MCV 92.8 MCH 30.9 MCHC 33.3 RDW 13.1 Plt Count 149 D MPV 9.1 Sodium 139 Potassium 3.8 Chloride 105 Carbon Dioxide 27 Anion Gap 6 L BUN 8.4 Creatinine 0.6 Est GFR (CKD-EPI)AfAm 130.30 Est GFR (CKD-EPI)NonAf 112.42 Random Glucose 88 Calcium 7.6 L Phosphorus 2.5 Magnesium 2.2 Active Medications Generic Name Dose Route Start Last Admin Trade Name Freq PRN Reason Stop Dose Admin Diazepam 5 mg 11/16/18 18:48 11/17/18 03:20 Valium - PO 5 mg Q8H PRN Administration MUSCLE SPASMS Diphenhydramine HCl 25 mg 11/15/18 15:24 11/15/18 19:00 Benadryl Injection - IVPUSH 25 mg ONCE PRN Administration FOR ITCHING Docusate Sodium 100 mg 11/16/18 12:52 Colace - PO BID PRN CONSTIPATION Fentanyl 50 mcg 11/15/18 20:26 11/15/18 20:08 Sublimaze Injection - IVPUSH 50 mcg [id number] PRN Administration PAIN-PACU ORDER X 4 DOSES ONLY Gabapentin 300 mg 11/16/18 14:00 11/17/18 05:52 Neurontin - PO 300 mg TID [facility] Administration Hydromorphone HCl 2 mg 11/16/18 18:49 Dilaudid Vial - SQ Q8H PRN PAIN LEVEL 6-10 Lactated Ringer's 1,000 mls @ 125 mls/hr 11/15/18 19:00 11/16/18 19:45 Lactated Ringers Solution IV 125 mls/hr ASDIR [facility] Administration Naloxone HCl 0.4 mg 11/15/18 15:24 Narcan - IVPUSH ONCE PRN Sedation Ondansetron HCl 4 mg 11/15/18 18:51 Zofran Injection IVPUSH Q6H PRN NAUSEA AND/OR VOMITING Oxycodone HCl 10 mg 11/15/18 22:00 11/16/18 21:11 Oxycontin - PO 10 mg BID [facility] Administration Oxycodone HCl 10 mg 11/16/18 18:53 11/17/18 01:40 Roxicodone - PO 10 mg Q6H PRN Administration PAIN LEVEL 6-10 Oxycodone HCl 5 mg 11/16/18 18:54 Roxicodone - PO Q4H PRN PAIN LEVEL 1-5 ASSESSMENT/PLAN: 43 yo lady S/P Removal of L5-S1 hardware, Inspection of fusion mass, L4, L5, S1 osteotomies (facetectomies), L4-L5 discectomy, L4-L5 posterior lumbar interbody fusion, L4-L5 insertion biomechanical devices, L4-S1 posterior instrumentation , L4-S1 posterolateral arthrodesis., #Neuro radicular symptoms have improved and patient is no longer experiencing as much numbness/tingling -stable; will assess daily #Cardio patient has been slightly hypotensive likely 2/2 pain meds -currently on LR @125mls/hr -will bolus if necessary -monitor hemodynamics; #MSK POD #2 -valium Q6H -if valium doesn't work then dilaudid SQ -zofran PRN for nausea -incentive spirometer -PT eval -dc gaviria -SCDS for ppx -NPO until flatus F/E/N LR @125mls/hr monitor electrolytes NPO until flatus DVT PPX: scds dispo: transfer to med-surg Problem List - Problems (1) S/P spinal surgery Code(s): Z98.890 - OTHER SPECIFIED POSTPROCEDURAL STATES Visit type - Emergency Visit Emergency Visit: Yes ED Registration Date: 11/15/18 Care time: The patient presented to the Emergency Department on the above date and was hospitalized for further evaluation of their emergent condition. - New Patient This patient is new to me today: No - Critical Care Critical Care patient: Yes Total Critical Care Time (in minutes): 35 Critical Care Statement: The care of this patient involved high complexity decision making to prevent further life threatening deterioration of the patient 's condition and/or to evaluate & treat vital organ system(s) failure or risk of failure.
--- NOTE | 2018-11-17 10:52 | PN ---
Progress Note, Physician Chief Complaint: back pain, generalized weakness - Current Medication List Current Medications: Active Medications Diazepam (Valium -) 5 mg PO Q6H PRN PRN Reason: MUSCLE SPASMS Last Admin: 11/17/18 09:04 Dose: 5 mg Diphenhydramine HCl (Benadryl Injection -) 25 mg IVPUSH ONCE PRN PRN Reason: FOR ITCHING Last Admin: 11/15/18 19:00 Dose: 25 mg Docusate Sodium (Colace -) 100 mg PO BID PRN PRN Reason: CONSTIPATION Fentanyl (Sublimaze Injection -) 50 mcg IVPUSH [id number] PRN PRN Reason: PAIN-PACU ORDER X 4 DOSES ONLY Last Admin: 11/15/18 20:08 Dose: 50 mcg Gabapentin (Neurontin -) 300 mg PO TID [facility] Last Admin: 11/17/18 05:52 Dose: 300 mg Hydromorphone HCl (Dilaudid Vial -) 2 mg SQ Q8H PRN PRN Reason: PAIN LEVEL 6-10 Lactated Ringer's (Lactated Ringers Solution) 1,000 mls @ 125 mls/hr IV ASDIR [facility] Last Admin: 11/16/18 19:45 Dose: 125 mls/hr Naloxone HCl (Narcan -) 0.4 mg IVPUSH ONCE PRN PRN Reason: Sedation Ondansetron HCl (Zofran Injection) 4 mg IVPUSH Q6H PRN PRN Reason: NAUSEA AND/OR VOMITING Oxycodone HCl (Roxicodone -) 10 mg PO Q6H PRN PRN Reason: PAIN LEVEL 6-10 Last Admin: 11/17/18 01:40 Dose: 10 mg Oxycodone HCl (Roxicodone -) 5 mg PO Q4H PRN PRN Reason: PAIN LEVEL 1-5 Last Admin: 11/17/18 08:24 Dose: 5 mg - Objective Vital Signs: Vital Signs Temperature 99.1 F 11/17/18 06:00 Pulse Rate 94 H 11/17/18 07:59 Respiratory Rate 13 11/17/18 07:59 Blood Pressure 98/53 L 11/17/18 07:59 O2 Sat by Pulse Oximetry (%) 100 11/17/18 07:59 Constitutional: Yes: Well Nourished, Calm Eyes: Yes: WNL HENT: Yes: WNL Neck: Yes: WNL Cardiovascular: Yes: WNL Respiratory: Yes: WNL Gastrointestinal: Yes: WNL Genitourinary: Yes: WNL Musculoskeletal: Yes: WNL, Back Pain, Joint Stiffness Extremities: Yes: WNL Edema: No Peripheral Pulses WNL: Yes Integumentary: Yes: WNL Wound/Incision: Yes: Clean/Dry, Well Approximated Neurological: Yes: WNL ...Motor Strength: WNL Psychiatric: Yes: WNL Labs: CBC, BMP 11/17/18 05:10 11/17/18 05:10 Assessment/Plan 43 yo lady S/P Removal of L5-S1 hardware, Inspection of fusion mass, L4, L5, S1 osteotomies (facetectomies), L4-L5 discectomy, L4-L5 posterior lumbar interbody fusion, L4-L5 insertion biomechanical devices, L4-S1 posterior instrumentation , L4-S1 posterolateral arthrodesis., Bone allograft, Bone autograft. Bone marrow aspiration. cont pain management. incentive spirometry. Pt still C/O uncontrolled pain. -hypotension. likely exacerbated by pain meds. on IV fluids. -GI, DVT prophylaxis. -fungal vaginosis: one dose diflucan ordered. -oral diet as tolerated -PT/OT/OOB as tolerated -ICU care appreciated. Pt can go to monitored bed assessment and plan discussed with pt and medical staff
--- NOTE | 2018-11-17 11:20 | PN ---
Teaching Attending Note Name of Resident: Tanya Cyr ATTENDING PHYSICIAN STATEMENT I saw and evaluated the patient. I reviewed the resident's note and discussed the case with the resident. I agree with the resident's findings and plan as documented. SUBJECTIVE: Patient seen and examined in the ICU. Awake and alert. Reports significant pain but was just medicated. No CP or SOB. Hemodynamics improved. Intake & Output 11/14/18 11/15/18 11/16/18 11/17/18 23:59 23:59 23:59 23:59 Intake Total 2525 3600 1702 Output Total 2400 3000 Balance 543 547 6006 Weight 160 lb 160 lb Last Vital Signs Temp Pulse Resp BP Pulse Ox 99.1 F 94 H 13 98/53 L 100 11/17/18 06:00 11/17/18 07:59 11/17/18 07:59 11/17/18 07:59 11/17/18 07:59 Active Medications Diazepam (Valium -) 5 mg PO Q6H PRN PRN Reason: MUSCLE SPASMS Last Admin: 11/17/18 09:04 Dose: 5 mg Diphenhydramine HCl (Benadryl Injection -) 25 mg IVPUSH ONCE PRN PRN Reason: FOR ITCHING Last Admin: 11/15/18 19:00 Dose: 25 mg Docusate Sodium (Colace -) 100 mg PO BID PRN PRN Reason: CONSTIPATION Fentanyl (Sublimaze Injection -) 50 mcg IVPUSH [id number] PRN PRN Reason: PAIN-PACU ORDER X 4 DOSES ONLY Last Admin: 11/15/18 20:08 Dose: 50 mcg Gabapentin (Neurontin -) 300 mg PO TID [facility] Last Admin: 11/17/18 05:52 Dose: 300 mg Hydromorphone HCl (Dilaudid Vial -) 2 mg SQ Q8H PRN PRN Reason: PAIN LEVEL 6-10 Lactated Ringer's (Lactated Ringers Solution) 1,000 mls @ 125 mls/hr IV ASDIR [facility] Last Admin: 11/16/18 19:45 Dose: 125 mls/hr Naloxone HCl (Narcan -) 0.4 mg IVPUSH ONCE PRN PRN Reason: Sedation Ondansetron HCl (Zofran Injection) 4 mg IVPUSH Q6H PRN PRN Reason: NAUSEA AND/OR VOMITING Oxycodone HCl (Roxicodone -) 10 mg PO Q6H PRN PRN Reason: PAIN LEVEL 6-10 Last Admin: 11/17/18 01:40 Dose: 10 mg Oxycodone HCl (Roxicodone -) 5 mg PO Q4H PRN PRN Reason: PAIN LEVEL 1-5 Last Admin: 11/17/18 08:24 Dose: 5 mg Gen: NAD at rest Heart: RRR Lung: decreased breath sounds at the bases Abd: soft, nontender Ext: no edema Laboratory Results - last 24 hr 11/17/18 11/17/18 05:10 05:10 WBC 12.5 H RBC 3.07 L Hgb 9.5 L Hct 28.5 L MCV 92.8 MCH 30.9 MCHC 33.3 RDW 13.1 Plt Count 149 D MPV 9.1 Sodium 139 Potassium 3.8 Chloride 105 Carbon Dioxide 27 Anion Gap 6 L BUN 8.4 Creatinine 0.6 Est GFR (CKD-EPI)AfAm 130.30 Est GFR (CKD-EPI)NonAf 112.42 Random Glucose 88 Calcium 7.6 L Phosphorus 2.5 Magnesium 2.2 ASSESSMENT AND PLAN: Lumbar Spinal Stenosis with Radiculopathy and Neurogenic Claudication S/P L5-S1 BRETT/L4-L5 PLIF/Biomechanical Device Insertion - pain control - incentive spirometry - PO when flatus - PT/rehab - DVT prophylaxis - can monitor on floor Dr Ferrer
[2018-11-17] MEDS ORDERED: SODIUM CHLORIDE 500 ML IV STA (14:15)
--- NOTE | 2018-11-17 14:26 | PATH ---
Surgical Pathology Report Patient Name: ODILIA BENTLEY Med. Rec. 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 Specimen(s) Received A: HARDWARE FROM SPINAL FUSION B: DISC L4-L5 Clinical History Intervertebral disc disorder Final Diagnosis A. ORTHOPEDIC HARDWARE, LUMBAR, REMOVAL: METALLIC RODS AND SCREWS CONSISTENT WITH ORTHOPEDIC HARDWARE (GROSS ONLY). B. INTERVERTEBRAL DISC, L4-5, EXCISION: PORTIONS OF INTERVERTEBRAL DISC. Electronically Signed Jean Guadalupe M.D. Gross Description A. Received fresh labeled "hardware from spinal fusion," are 2 ríos metallic rods averaging 4.5 cm in length. Also received within the same container are 8 ríos metallic screws ranging from 0.5-5.0 cm in length. No soft tissue is present. No sections are submitted, gross only. B. Received in formalin labeled "disc L4-L5," is a 3.5 x 3.0 x 0.5 cm aggregate of carter fragments of fibrocartilaginous tissue. A patient registration representative portion is submitted in one cassette. 11/16/201811/16/2018
[2018-11-17] MEDS ORDERED: ACETAMINOPHEN 1000 MG/100 ML VIAL (NON FORMULARY) IVPB ONE (14:31)
[2018-11-17] MEDS: LACTATED RINGERS SOLUTION 1,000 ML IV SCH ×2 (14:33→20:01)
[2018-11-17] MEDS ORDERED: morphine SULFATE/Preservative Free 0.5 MG/ML (1cc Syringe) IT ONE (15:18)
[2018-11-17] MEDS ORDERED: HYDROmorphone HCl 2 MG/ML VIAL SQ PRN (15:18)
[2018-11-17] MEDS ORDERED: NALOXONE HCL 0.4 MG/ML VIAL IVPUSH PRN (15:18)
[2018-11-17] MEDS ORDERED: ONDANSETRON 4 MG/2 ML VIAL IVPUSH PRN (15:18)
[2018-11-17] MEDS ORDERED: oxyCODONE HCL 5 MG TABLET PO PRN (15:18)
[2018-11-17] MEDS: HYDROmorphone HCl 2 MG/ML VIAL IVPB PRN (20:24)
[2018-11-18] MEDS: oxyCODONE HCL 5 MG TABLET PO PRN ×2 (02:48→11:02)
[2018-11-18] MEDS: HYDROmorphone HCl 2 MG/ML VIAL IVPB PRN (05:35)
[2018-11-18] MEDS: GABAPENTIN 300 MG CAPSULE (FP) PO SCH ×3 (05:35→21:09)
[2018-11-18 07:41] LABS: HEMATOCRIT 27.3 % (32.4-45.2); HEMOGLOBIN 9.3 GM/dL (10.7-15.3); MCH 31.6 pg (25.7-33.7); MCHC 34.2 g/dl (32.0-36.0); MEAN CELL VOLUME 92.6 fl (80-96); MEAN PLT VOLUME 9.3 fl (7.5-11.1); PLATELET COUNT 149 K/MM3 (134-434); RBC 2.94 M/mm3 (3.60-5.2); RDW 12.9 % (11.6-15.6); WHITE BLOOD COUNT 11.2 K/mm3 (4.0-10.0)
[2018-11-18 08:10] LABS: BLOOD UREA NITROGEN 7.1 mg/dL (7-18); CALCIUM 7.6 mg/dL (8.5-10.1); CREATININE 0.5 mg/dL (0.55-1.3); MAGNESIUM 2.2 mg/dL (1.8-2.4); PHOSPHOROUS 2.7 mg/dL (2.5-4.9); POTASSIUM 3.8 mmol/L (3.5-5.1)
[2018-11-18] MEDS: LACTATED RINGERS SOLUTION 1,000 ML IV SCH (10:00)
[2018-11-18] MEDS: DOCUSATE SODIUM 100 MG CAPSULE (FP) PO PRN (10:15)
[2018-11-18] MEDS: diazePAM 5 MG TABLET PO PRN ×2 (13:06→18:56)
--- NOTE | 2018-11-18 17:27 | PN ---
Progress Note, Physician Chief Complaint: back pain, generalized weakness - Current Medication List Current Medications: Active Medications Diazepam (Valium -) 5 mg PO Q6H PRN PRN Reason: MUSCLE SPASMS Last Admin: 11/18/18 13:06 Dose: 5 mg Diphenhydramine HCl (Benadryl Injection -) 25 mg IVPUSH ONCE PRN PRN Reason: FOR ITCHING Docusate Sodium (Colace -) 100 mg PO BID PRN PRN Reason: CONSTIPATION Last Admin: 11/18/18 10:15 Dose: 100 mg Gabapentin (Neurontin -) 300 mg PO TID ANAMIKA Last Admin: 11/18/18 13:06 Dose: 300 mg Hydromorphone HCl (Dilaudid -) 4 mg PO Q6H PRN PRN Reason: PAIN LEVEL 4 - 6 Last Admin: 11/18/18 15:29 Dose: 4 mg Ondansetron HCl (Zofran Injection) 4 mg IVPUSH Q6H PRN PRN Reason: NAUSEA AND/OR VOMITING Polyethylene Glycol (Miralax (For Daily Use) -) 17 gm PO DAILY ANAMIKA Senna (Senna -) 2 tab PO HS ANAMIKA - Objective Vital Signs: Vital Signs Temperature 98.7 F 11/18/18 16:55 Pulse Rate 97 H 11/18/18 16:55 Respiratory Rate 18 11/18/18 16:55 Blood Pressure 118/67 11/18/18 16:55 O2 Sat by Pulse Oximetry (%) 98 11/17/18 21:00 Constitutional: Yes: Well Nourished, Anxious, Mild Distress Eyes: Yes: WNL HENT: Yes: WNL Neck: Yes: WNL Cardiovascular: Yes: WNL Respiratory: Yes: WNL Genitourinary: Yes: WNL Musculoskeletal: Yes: Back Pain, Joint Stiffness Extremities: Yes: WNL Edema: No Integumentary: Yes: WNL Wound/Incision: Yes: Clean/Dry, Well Approximated Neurological: Yes: WNL ...Motor Strength: WNL Psychiatric: Yes: WNL Labs: CBC, BMP 11/18/18 06:00 11/18/18 06:00 Assessment/Plan 43 yo lady S/P Removal of L5-S1 hardware, Inspection of fusion mass, L4, L5, S1 osteotomies (facetectomies), L4-L5 discectomy, L4-L5 posterior lumbar interbody fusion, L4-L5 insertion biomechanical devices, L4-S1 posterior instrumentation , L4-S1 posterolateral arthrodesis., Bone allograft, Bone autograft. Bone marrow aspiration. cont pain management. incentive spirometry. Pt still C/O uncontrolled pain. switched to PO benadryl tylenol and valium added. She is asking for IV dilaudid but I am hesitant to provise in order to avoid dependance especially taking into consideration that she will be discharged within 48 hours. -hypotension. likely exacerbated by pain meds. on IV fluids. improved. -GI, DVT prophylaxis. -fungal vaginosis: one dose diflucan ordered. -oral diet as tolerated -PT/OT/OOB as tolerated -stable in monitored bed. assessment and plan discussed with pt and medical staff
[2018-11-18] MEDS: SENNOSIDES 8.6MG TABLET (FP) PO SCH (21:09)
[2018-11-18] MEDS: ACETAMINOPHEN 325 MG TABLET (FP) PO PRN (21:16)
[2018-11-19] MEDS: diazePAM 5 MG TABLET PO PRN ×2 (00:31→06:58)
[2018-11-19] MEDS: GABAPENTIN 300 MG CAPSULE (FP) PO SCH ×3 (06:59→21:31)
[2018-11-19] MEDS: POLYETHYLENE GLYCOL 3350 119 GM BTL PO SCH (09:17)
[2018-11-19] MEDS: DOCUSATE SODIUM 100 MG CAPSULE (FP) PO PRN (11:14)
--- NOTE | 2018-11-19 16:32 | PN ---
Progress Note, Physician Chief Complaint: back pain, generalized weakness, constipation, dizziness while walking - Current Medication List Current Medications: Active Medications Acetaminophen (Tylenol -) 650 mg PO Q6H PRN PRN Reason: PAIN/FEVER Last Admin: 11/18/18 21:16 Dose: 650 mg Diazepam (Valium -) 5 mg PO Q6H PRN PRN Reason: MUSCLE SPASMS Last Admin: 11/19/18 06:58 Dose: 5 mg Diphenhydramine HCl (Benadryl Injection -) 25 mg IVPUSH ONCE PRN PRN Reason: FOR ITCHING Docusate Sodium (Colace -) 100 mg PO BID PRN PRN Reason: CONSTIPATION Last Admin: 11/19/18 11:14 Dose: 100 mg Gabapentin (Neurontin -) 300 mg PO TID [facility] Last Admin: 11/19/18 06:59 Dose: 300 mg Hydromorphone HCl (Dilaudid -) 4 mg PO Q6H PRN PRN Reason: PAIN LEVEL 4 - 6 Last Admin: 11/19/18 15:48 Dose: 4 mg Ondansetron HCl (Zofran Injection) 4 mg IVPUSH Q6H PRN PRN Reason: NAUSEA AND/OR VOMITING Polyethylene Glycol (Miralax (For Daily Use) -) 17 gm PO DAILY [facility] Last Admin: 11/19/18 09:17 Dose: 17 gm Senna (Senna -) 2 tab PO HS [facility] Last Admin: 11/18/18 21:09 Dose: 2 tab - Objective Vital Signs: Vital Signs Temperature 98.9 F 11/19/18 14:21 Pulse Rate 96 H 11/19/18 14:21 Respiratory Rate 20 11/19/18 14:21 Blood Pressure 104/56 L 11/19/18 14:21 O2 Sat by Pulse Oximetry (%) 100 11/18/18 21:00 Constitutional: Yes: Well Nourished, Anxious Eyes: Yes: WNL HENT: Yes: WNL Neck: Yes: WNL Cardiovascular: Yes: WNL Respiratory: Yes: WNL Gastrointestinal: Yes: Distention, Hypoactive Bowel Sounds Genitourinary: Yes: WNL, Other (dysuria) Musculoskeletal: Yes: Back Pain, Joint Stiffness Extremities: Yes: WNL Edema: No Peripheral Pulses WNL: Yes Integumentary: Yes: WNL Wound/Incision: Yes: Clean/Dry, Well Approximated Labs: CBC, BMP 11/18/18 06:00 11/18/18 06:00 Assessment/Plan 43 yo lady S/P Removal of L5-S1 hardware, Inspection of fusion mass, L4, L5, S1 osteotomies (facetectomies), L4-L5 discectomy, L4-L5 posterior lumbar interbody fusion, L4-L5 insertion biomechanical devices, L4-S1 posterior instrumentation , L4-S1 posterolateral arthrodesis., Bone allograft, Bone autograft. Bone marrow aspiration. cont pain management. incentive spirometry. She is C/O dizziness when ambulating. orthostatics ordered. -abdominal pain: opioid induced constipation: cont stool softeners. fleet enema requested. -GI, DVT prophylaxis. -fungal vaginosis: one dose diflucan ordered. -oral diet as tolerated -PT/OT/OOB as tolerated -AM labs requested assessment and plan discussed with pt , her family at bedside and medical staff
[2018-11-19 18:48] LABS: EPI CELLS 1.2 /HPF (0-5/HPF); HYALINE CASTS 50 /lpf (0-8); URINE APPEARANCE CLOUDY; URINE BACTERIA >9000 /hpf (NEGATIVE); URINE BILIRUBIN NEGATIVE (NEGATIVE); URINE COLOR YELLOW; URINE GLUCOSE (UA) NEGATIVE (NEGATIVE); URINE KETONE NEGATIVE (NEGATIVE); URINE LEUK ESTERASE 2+ (NEGATIVE); URINE NITRITE POSITIVE (NEGATIVE); URINE PROTEIN TRACE (NEGATIVE); URINE RBC 12 /hpf (0-4); URINE WBC 157 /hpf (0-5)
[2018-11-19] MEDS: SENNOSIDES 8.6MG TABLET (FP) PO SCH (21:31)
[2018-11-19] MEDS: ACETAMINOPHEN 325 MG TABLET (FP) PO PRN (21:31)
[2018-11-19] MEDS: DOCUSATE SODIUM 100 MG CAPSULE (FP) PO SCH (21:31)
[2018-11-20] MEDS: GABAPENTIN 300 MG CAPSULE (FP) PO SCH ×3 (05:23→22:37)
[2018-11-20 08:01] LABS: BASO % 0.3 % (0-2.0); EOS % 3.6 % (0-4.5); HEMATOCRIT 30.3 % (32.4-45.2); HEMOGLOBIN 10.4 GM/dL (10.7-15.3); LYMPH % 17.3 % (8-40); MCH 31.3 pg (25.7-33.7); MCHC 34.2 g/dl (32.0-36.0); MEAN CELL VOLUME 91.3 fl (80-96); MEAN PLT VOLUME 8.5 fl (7.5-11.1); MONO % 10.7 % (3.8-10.2); NEUT % 68.1 % (42.8-82.8); RBC 3.32 M/mm3 (3.60-5.2); RDW 12.8 % (11.6-15.6); WHITE BLOOD COUNT 9.2 K/mm3 (4.0-10.0)
[2018-11-20 08:22] LABS: BILIRUBIN,TOTAL 0.6 mg/dL (0.2-1); BLOOD UREA NITROGEN 8.6 mg/dL (7-18); CALCIUM 8.4 mg/dL (8.5-10.1); CREATININE 0.5 mg/dL (0.55-1.3); POTASSIUM 3.5 mmol/L (3.5-5.1); TOT PROT 6.8 g/dl (6.4-8.2)
[2018-11-20 09:10] LABS: PLATELET COUNT 231 K/MM3 (134-434)
[2018-11-20] MEDS ORDERED: diazePAM 5 MG TABLET PO ONE (09:15)
[2018-11-20] MEDS: POLYETHYLENE GLYCOL 3350 119 GM BTL PO SCH (09:30)
--- NOTE | 2018-11-20 09:31 | PN ---
Progress Note (short form) - Note Progress Note: 43F s/p L4-S1 decompression & L4-S1 posterolateral instrumented arthrodesis POD #5. Pain well controlled with valium PO and dilaudid PO; oxycodone, roxicodone, oxycontin ineffective. Pt. denies overnight history of headaches, chest pain, shortness of breath, nausea, vomiting, chills, & sweats. (+) Voiding; (+) Flatus; (-) BM. (+) Stood up and walked from bed to chair today. All labs and vitals reviewed. PE: AAO x 3, NAD. L-Spine: Incision, dressing C/D/I. B/L LE M: L2-S1 intact, minimum 3/. RLE S: L2-S1 2/2. LLE S: L2-L5 2/2; S1 1/2. 43F s/p L4-S1 decompression & L4-S1 posterolateral instrumented arthrodesis POD #5. -Transfer patient to 8th floor today (med-surg). -Pain control: NO NSAID's. -Nursing care: fastidious avoidance of decubitus ulcers; log roll/place on wedge pillows every 2 hours; rolled up towels under the ankles to offload the heels. -DVT PPx: -Mechanical only: GEN's, SCD's. -Incentive spirometry q15 min. -Diet as tolerated. -PT/OT/Rehab, OOB. -WBAT B/L LE. -Raised toilet seat. -No bending, lifting (>5 lbs), or twisting for 9-12 months. -Care per ICU & medical hospitalist Dr. Denny. -Discharge planning: [facility]; call for appointment; . -Will follow. Jose Alberto Mendez MD (Orthopaedic Surgery).
[2018-11-20] MEDS ORDERED: Methylnaltrexone Bromide 12 MG/0.6 ML KIT SQ SCH (15:30)
--- NOTE | 2018-11-20 16:51 | PN ---
Progress Note (short form) - Note Progress Note: (+) Large bowel movement. (+) UTI; Ceftriaxone given. Will continue until urine culture results are posted.
[2018-11-20] MEDS ORDERED: cefTRIAXone SODIUM 1 GM VIAL ONE (17:05)
[2018-11-20] MEDS ORDERED: DEXTROSE 5%-WATER - 50 ML IVPB ONE (17:06)
[2018-11-20] MEDS: CEFTRIAXONE 1 GM in DEXTROSE 5%-WATER - 50 ML IVPB SCH (17:12)
[2018-11-20] MEDS: ACETAMINOPHEN 325 MG TABLET (FP) PO PRN (17:12)
--- NOTE | 2018-11-20 18:40 | PN ---
Progress Note, Physician Chief Complaint: back pain, generalized weakness, constipation, dizziness while walking - Current Medication List Current Medications: Active Medications Acetaminophen (Tylenol -) 650 mg PO Q6H PRN PRN Reason: PAIN/FEVER Last Admin: 11/20/18 17:12 Dose: 650 mg Diazepam (Valium -) 5 mg PO Q6H PRN PRN Reason: MUSCLE SPASMS Diphenhydramine HCl (Benadryl Injection -) 25 mg IVPUSH ONCE PRN PRN Reason: FOR ITCHING Docusate Sodium (Colace -) 300 mg PO HS [facility] Last Admin: 11/19/18 21:31 Dose: 300 mg Gabapentin (Neurontin -) 300 mg PO TID [facility] Last Admin: 11/20/18 13:35 Dose: 300 mg Hydromorphone HCl (Dilaudid -) 4 mg PO Q6H PRN PRN Reason: PAIN LEVEL 4 - 6 Last Admin: 11/20/18 15:36 Dose: 4 mg Ceftriaxone Sodium 1 gm/ (Dextrose) 50 mls @ 100 mls/hr IVPB DAILY [facility] Last Admin: 11/20/18 17:12 Dose: 100 mls/hr Lactobacillus Acidophilus (Bacid -) 1 tab PO DAILY [facility] Ondansetron HCl (Zofran Injection) 4 mg IVPUSH Q6H PRN PRN Reason: NAUSEA AND/OR VOMITING Polyethylene Glycol (Miralax (For Daily Use) -) 17 gm PO DAILY [facility] Last Admin: 11/20/18 09:30 Dose: 17 gm Senna (Senna -) 2 tab PO [facility] Last Admin: 11/19/18 21:31 Dose: 2 tab - Objective Vital Signs: Vital Signs Temperature 101.9 F H 11/20/18 16:45 Pulse Rate 107 H 11/20/18 16:45 Respiratory Rate 18 11/20/18 16:45 Blood Pressure 98/52 L 11/20/18 16:45 O2 Sat by Pulse Oximetry (%) 99 11/20/18 09:00 Constitutional: Yes: Well Nourished, Calm Eyes: Yes: WNL HENT: Yes: WNL Neck: Yes: WNL Cardiovascular: Yes: WNL Respiratory: Yes: WNL Gastrointestinal: Yes: WNL Genitourinary: Yes: WNL Musculoskeletal: Yes: WNL, Back Pain, Joint Stiffness Extremities: Yes: WNL Edema: No Peripheral Pulses WNL: Yes Integumentary: Yes: WNL Wound/Incision: Yes: Clean/Dry Neurological: Yes: WNL ...Motor Strength: WNL Psychiatric: Yes: WNL Labs: CBC, BMP 11/20/18 07:30 11/20/18 07:30 Assessment/Plan 43 yo lady S/P Removal of L5-S1 hardware, Inspection of fusion mass, L4, L5, S1 osteotomies (facetectomies), L4-L5 discectomy, L4-L5 posterior lumbar interbody fusion, L4-L5 insertion biomechanical devices, L4-S1 posterior instrumentation , L4-S1 posterolateral arthrodesis., Bone allograft, Bone autograft. Bone marrow aspiration. cont pain management. incentive spirometry. -She is C/O dizziness when ambulating. likely opioid induced hypotension. Pt instructed to take her time before changing position from lying to sitting to standing. -abdominal pain: opioid induced constipation: cont stool softeners. fleet enema ordered. had 2 full BM's today. -GI, DVT prophylaxis. -fungal vaginosis: one dose diflucan ordered. -UTI: started empiric coverage with ceftriaxone. awaiting sensitivities. BACID added to prevent C diff colitis. leucocytosis resolved. -oral diet as tolerated -PT/OT/OOB as tolerated -assessment and plan discussed with pt , her family at bedside and medical staff they have my cell phone should any issues arise. DC plan to rehab in progress
[2018-11-20] MEDS: DOCUSATE SODIUM 100 MG CAPSULE (FP) PO SCH (22:36)
[2018-11-20] MEDS: SENNOSIDES 8.6MG TABLET (FP) PO SCH (22:37)
[2018-11-20] MEDS: diazePAM 5 MG TABLET PO PRN (22:37)
[2018-11-21] MEDS: GABAPENTIN 300 MG CAPSULE (FP) PO SCH ×3 (06:56→22:06)
[2018-11-21] MEDS ORDERED: cefTRIAXone SODIUM 1 GM VIAL ONE (09:32)
[2018-11-21] MEDS ORDERED: DEXTROSE 5%-WATER - 50 ML IVPB ONE (09:32)
[2018-11-21] MEDS: LACTOBACILLUS ACIDOPHILUS 1 TABLET PO SCH (09:40)
[2018-11-21] MEDS: CEFTRIAXONE 1 GM in DEXTROSE 5%-WATER - 50 ML IVPB SCH (09:40)
[2018-11-21] MEDS: diazePAM 5 MG TABLET PO PRN ×2 (09:54→17:34)
[2018-11-21] MEDS: POLYETHYLENE GLYCOL 3350 119 GM BTL PO SCH (13:43)
[2018-11-21] MEDS: ACETAMINOPHEN 325 MG TABLET (FP) PO PRN (17:33)
--- NOTE | 2018-11-21 18:07 | PN ---
Progress Note, Physician Chief Complaint: back pain, generalized weakness, constipation, dizziness while walking - Current Medication List Current Medications: Active Medications Acetaminophen (Tylenol -) 650 mg PO Q6H PRN PRN Reason: PAIN/FEVER Last Admin: 11/21/18 17:33 Dose: 650 mg Diazepam (Valium -) 5 mg PO Q6H PRN PRN Reason: MUSCLE SPASMS Last Admin: 11/21/18 17:34 Dose: 5 mg Diphenhydramine HCl (Benadryl Injection -) 25 mg IVPUSH ONCE PRN PRN Reason: FOR ITCHING Docusate Sodium (Colace -) 300 mg PO HS [facility] Last Admin: 11/20/18 22:36 Dose: 300 mg Gabapentin (Neurontin -) 300 mg PO TID [facility] Last Admin: 11/21/18 13:43 Dose: 300 mg Hydromorphone HCl (Dilaudid -) 4 mg PO Q6H PRN PRN Reason: PAIN LEVEL 4 - 6 Last Admin: 11/21/18 13:42 Dose: 4 mg Ceftriaxone Sodium 1 gm/ (Dextrose) 50 mls @ 100 mls/hr IVPB DAILY [facility] Last Admin: 11/21/18 09:40 Dose: 100 mls/hr Lactobacillus Acidophilus (Bacid -) 1 tab PO DAILY [facility] Last Admin: 11/21/18 09:40 Dose: 1 tab Ondansetron HCl (Zofran Injection) 4 mg IVPUSH Q6H PRN PRN Reason: NAUSEA AND/OR VOMITING Polyethylene Glycol (Miralax (For Daily Use) -) 17 gm PO DAILY [facility] Last Admin: 11/21/18 13:43 Dose: 17 gm Senna (Senna -) 2 tab PO [facility] Last Admin: 11/20/18 22:37 Dose: 2 tab - Objective Vital Signs: Vital Signs Temperature 98.4 F 11/21/18 16:30 Pulse Rate 86 11/21/18 16:30 Respiratory Rate 18 11/21/18 16:30 Blood Pressure 115/68 11/21/18 16:30 O2 Sat by Pulse Oximetry (%) 100 11/21/18 09:00 Constitutional: Yes: Well Nourished, No Distress Eyes: Yes: WNL HENT: Yes: WNL Neck: Yes: WNL Cardiovascular: Yes: WNL Respiratory: Yes: WNL Genitourinary: Yes: WNL Musculoskeletal: Yes: Back Pain Extremities: Yes: WNL Edema: Yes Integumentary: Yes: WNL Wound/Incision: Yes: Clean/Dry, Well Approximated Neurological: Yes: WNL ...Motor Strength: WNL Psychiatric: Yes: WNL Labs: CBC, BMP 11/20/18 07:30 11/20/18 07:30 Assessment/Plan 43 yo lady S/P Removal of L5-S1 hardware, Inspection of fusion mass, L4, L5, S1 osteotomies (facetectomies), L4-L5 discectomy, L4-L5 posterior lumbar interbody fusion, L4-L5 insertion biomechanical devices, L4-S1 posterior instrumentation , L4-S1 posterolateral arthrodesis., Bone allograft, Bone autograft. Bone marrow aspiration. cont pain management. incentive spirometry. -She is C/O dizziness when ambulating. likely opioid induced hypotension. Pt instructed to take her time before changing position from lying to sitting to standing. -abdominal pain: opioid induced constipation: cont stool softeners. fleet enema ordered. had 2 full BM's today. -GI, DVT prophylaxis. -fungal vaginosis: one dose diflucan ordered. -UTI: started empiric coverage with ceftriaxone. awaiting sensitivities. BACID added to prevent C diff colitis. leucocytosis resolved. -oral diet as tolerated -PT/OT/OOB as tolerated -assessment and plan discussed with pt , her family at bedside and medical staff they have my cell phone should any issues arise. DC plan to rehab in progress. hopefully tomorrow
[2018-11-21] MEDS: SENNOSIDES 8.6MG TABLET (FP) PO SCH (22:04)
[2018-11-21] MEDS: DOCUSATE SODIUM 100 MG CAPSULE (FP) PO SCH (22:04)
[2018-11-22] MEDS: ACETAMINOPHEN 325 MG TABLET (FP) PO PRN ×2 (01:48→14:31)
[2018-11-22] MEDS: GABAPENTIN 300 MG CAPSULE (FP) PO SCH ×2 (06:17→13:48)
[2018-11-22] MEDS ORDERED: cefTRIAXone SODIUM 1 GM VIAL ONE (09:47)
[2018-11-22] MEDS ORDERED: DEXTROSE 5%-WATER - 50 ML IVPB ONE (09:47)
[2018-11-22] MEDS ORDERED: AMOX TR/POT CLAV 500MG/125MG TABLETS (FP) PO SCH (09:51)
[2018-11-22] MEDS: POLYETHYLENE GLYCOL 3350 119 GM BTL PO SCH (09:54)
[2018-11-22] MEDS: CEFTRIAXONE 1 GM in DEXTROSE 5%-WATER - 50 ML IVPB SCH (09:54)
[2018-11-22] MEDS: LACTOBACILLUS ACIDOPHILUS 1 TABLET PO SCH (09:54)
--- NOTE | 2018-11-22 09:57 | PN ---
Progress Note (short form) - Note Progress Note: 43F s/p L4-S1 decompression & L4-S1 posterolateral instrumented arthrodesis POD #7. Pain well controlled with valium PO and dilaudid PO; oxycodone, roxicodone, oxycontin ineffective. Pt. denies overnight history of headaches, chest pain, shortness of breath, vomiting, chills, & sweats. (+) Nausea. (+) Voiding; (+) Flatus; (+) BM. (+) Stood up and walked in room today. Pt. reports significant improvement in low back pain and B/L LE radiculopathy. All labs and vitals reviewed. PE: AAO x 3, NAD. L-Spine: Incision w/fibrinous exudate, no purulence; dressing with scant drainage. B/L LE M: L2-S1 intact, minimum 3/5. RLE S: L2-S1 2/2. LLE S: L2-L5 2/2; S1 1/2. 43F s/p L4-S1 decompression & L4-S1 posterolateral instrumented arthrodesis POD #7. -Start Augmentin 500mg PO BID x 10 days & Bactrim DS 2 tabs PO BID x 10 days today for wound coverage and UTI (E. Coli). -Pain control: NO NSAID's. -Nursing care: fastidious avoidance of decubitus ulcers; log roll/place on wedge pillows every 2 hours; rolled up towels under the ankles to offload the heels. -DVT PPx: -Mechanical only: GEN's, SCD's. -Incentive spirometry q15 min. -Diet as tolerated. -PT/OT/Rehab, OOB. -WBAT B/L LE. -Raised toilet seat. -No bending, lifting (>5 lbs), or twisting for 9-12 months. -Care per ICU & medical hospitalist Dr. Denny. -Discharge planning: [facility]; f/u 7-10 days after discharge at [facility] office; call for appointment; . -Will follow. Jose Alberto Mendez MD (Orthopaedic Surgery).
[2018-11-22] MEDS ORDERED: SULFAMETHOXAZOLE/TRIMETHOPRIM 800MG/160MG D.S. TABLET PO SCH (10:00)
[2018-11-22 10:02] VITALS: BP 122/68; PULSE 92; TEMP 98.7
--- NOTE | 2018-11-22 11:06 | DS ---
Physical Examination Vital Signs: Vital Signs Temperature 98.7 F 11/22/18 10:00 Pulse Rate 92 H 11/22/18 10:00 Respiratory Rate 16 11/22/18 10:00 Blood Pressure 122/68 11/22/18 10:00 O2 Sat by Pulse Oximetry (%) 100 11/21/18 09:00 Constitutional: Yes: Well Nourished, No Distress, Calm Eyes: Yes: WNL HENT: Yes: WNL Neck: Yes: WNL Cardiovascular: Yes: WNL Respiratory: Yes: WNL Gastrointestinal: Yes: WNL Renal/: Yes: WNL Musculoskeletal: Yes: Back Pain Extremities: Yes: WNL Peripheral Pulses WNL: Yes Integumentary: Yes: WNL Wound/Incision: Yes: Clean/Dry, Well Approximated Neurological: Yes: WNL ...Motor Strength: WNL Psychiatric: Yes: WNL Labs: CBC, BMP 11/20/18 07:30 11/20/18 07:30 Discharge Summary Reason For Visit: INTERVERTEBRAL DISC DISORDER Current Active Problems S/P spinal surgery (Acute) Hospital Course: 43 yo lady S/P Removal of L5-S1 hardware, Inspection of fusion mass, L4, L5, S1 osteotomies (facetectomies), L4-L5 discectomy, L4-L5 posterior lumbar interbody fusion, L4-L5 insertion biomechanical devices, L4-S1 posterior instrumentation , L4-S1 posterolateral arthrodesis., Bone allograft, Bone autograft. Bone marrow aspiration. cont pain management. incentive spirometry. -She was C/O dizziness when ambulating. likely opioid induced hypotension. Pt instructed to take her time before changing position from lying to sitting to standing. -abdominal pain: opioid induced constipation: cont stool softeners. fleet enema ordered. improved. -GI, DVT prophylaxis. -fungal vaginosis: one dose diflucan ordered. resolved. -UTI: started empiric coverage with ceftriaxone. sensitive to bactrim -oral diet as tolerated -PT/OT/OOB as tolerated -assessment and plan discussed with pt , her family at bedside and medical staff Condition: Good - Instructions Diet, Activity, Other Instructions: regular diet [facility] - Home Medications Comprehensive Discharge Medication List: Ambulatory Orders Acetaminophen [Tylenol -] 500 mg PO Q4H PRN 11/14/18 Cyclobenzaprine HCl [Flexeril 10 mg] 10 mg PO BID PRN 11/14/18 Docusate Sodium [Dok] 100 mg PO PRN PRN 11/14/18 Gabapentin 600 mg PO HS 11/14/18 Oxycodone HCl/Acetaminophen [Oxycodone-Acetaminophen 5-325] 1 each PO PRN PRN Sennosides [Senna] 8.6 mg PO HS 11/14/18 Tramadol HCl 1 - 2 tab PO PRN PRN 11/14/18
== END 2018-11-22 15:05 | DRG 454 ==
LOC: JSAMEDAYSX 11-15 12:15 → JICU 11-15 21:07 → J7W 11-17 16:58 → J8W 11-20 12:53
PROVIDERS: ADMIT Orthopaedic Surgery Adult Reconstructive Orthopaedic Surgery; ATTEND Orthopaedic Surgery Adult Reconstructive Orthopaedic Surgery
PROC: 0SG00AJ Fusion of Lumbar Vertebral Joint with Interbody Fusion Device, Posterior Approach, Anterior Column, Open Approach (ICD-10-PCS; 2018-11-15)
PROC: 0SG0071 Fusion of Lumbar Vertebral Joint with Autologous Tissue Substitute, Posterior Approach, Posterior Column, Open Approach (ICD-10-PCS; 2018-11-15)
PROC: 0SB20ZZ Excision of Lumbar Vertebral Disc, Open Approach (ICD-10-PCS; 2018-11-15)
PROC: 0SG30AJ Fusion of Lumbosacral Joint with Interbody Fusion Device, Posterior Approach, Anterior Column, Open Approach (ICD-10-PCS; 2018-11-15)
PROC: 0SG3071 Fusion of Lumbosacral Joint with Autologous Tissue Substitute, Posterior Approach, Posterior Column, Open Approach (ICD-10-PCS; 2018-11-15)
PROC: 0SB40ZZ Excision of Lumbosacral Disc, Open Approach (ICD-10-PCS; 2018-11-15)
PROC: 0JX90ZZ Transfer Buttock Subcutaneous Tissue and Fascia, Open Approach (ICD-10-PCS; 2018-11-15)
PROC: 07DR0ZZ Extraction of Iliac Bone Marrow, Open Approach (ICD-10-PCS; 2018-11-15)
PROC: 4A11X4G Monitoring of Peripheral Nervous Electrical Activity, Intraoperative, External Approach (ICD-10-PCS; 2018-11-15)
PROC: B01BZZZ Fluoroscopy of Spinal Cord (ICD-10-PCS; 2018-11-15)
PROC: 0SP30AZ Removal of Interbody Fusion Device from Lumbosacral Joint, Open Approach (ICD-10-PCS; principal; 2018-11-15 13:30)
DX: M51.16 Intervertebral disc disorders with radiculopathy, lumbar region (principal); N39.0 Urinary tract infection, site not specified; M48.062 Spinal stenosis, lumbar region with neurogenic claudication; M54.5 Low back pain; M53.2X6 Spinal instabilities, lumbar region; R53.1 Weakness; I95.2 Hypotension due to drugs; T40.2X5A Adverse effect of other opioids, initial encounter; N76.0 Acute vaginitis
CPT/HCPCS: 36415; 71045-TC-FY; 76000-TC-FY; 80048; 80053; 81003; 83735; 84100; 84443; 84702; 85025; 85027; 86850; 86900; 86901; 87086; 87186; 88300-TC; 88304-TC; 94010; 94760; 97116-GP; 97161-GP; J0131; J1644

== ENCOUNTER 2018-11-27 14:51 | Inpatient (IN) | payer BC ==
[2018-11-27 15:02] VITALS: BMI 26.6
--- NOTE | 2018-11-27 15:39 | CONSULT ---
Consult Consult Specialty:: IM Reason for Consultation:: pre-op clearance. post-op care - History of Present Illness Chief Complaint: back pain, wound dehiscence History of Present Illness: 43 yo lady S/P recent back surgery now comes in from rehab with open wound and back pain. Pt says her bed was 'dropped' which resulted in the current condition. denies fever, nausea, vomiting, diarrhea, chest pain, SOB - History Source History Provided By: Patient, Family Member Limitations to Obtaining History: No Limitations - Past Medical History ...LMP: 11/03/18 - Alcohol/Substance Use Hx Alcohol Use: No - Smoking History Smoking history: Never smoked Have you smoked in the past 12 months: No Home Medications - Allergies Allergies/Adverse Reactions: Allergies Allergy/AdvReac Type Severity Reaction Status Date / Time dog dander Allergy Verified 11/27/18 15:04 No Known Drug Allergies Allergy Verified 11/27/18 15:04 pollen extracts Allergy Verified 11/27/18 15:04 - Home Medications Home Medications: Ambulatory Orders Amox-Tr/K Cl [Augmentin 500-125mg Tablet -] 1 tab PO BID@0800,1730 tablet 11/22 Diazepam [Valium] 5 mg PO Q6H PRN 2 Days #10 tablet MDD 4 tabs 11/22/18 Docusate Sodium [Colace -] 300 mg PO HS capsule 11/22/18 Polyethylene Glycol 3350 [Miralax 119 gm Btl -] 17 gm PO DAILY bottle 11/22/18 Sennosides [Senna -] 2 tab PO HS tablet 11/22/18 Acetaminophen [Tylenol] 325 mg PO PRN PRN 11/27/18 Gabapentin [Neurontin -] 400 mg PO TID 11/27/18 HYDROmorphone [Dilaudid -] 4 mg PO Q6H PRN MDD 4 tabs 11/27/18 L.acidoph,Paracasei, B.lactis [Probiotic] 1 each PO DAILY 11/27/18 Lactulose (Oral Use) [Cephulac -] 20 gm PO QID 11/27/18 Mag Hydrox/Al Hydrox/Simeth [Mylanta Oral Suspension -] 30 ml PO Q4H PRN Menthol/Camphor [Sarna Anti-Itch] 222 applic TP BID PRN 11/27/18 Ondansetron HCl [Zofran] 4 mg PO Q8H PRN 11/27/18 Polyethylene Glycol 3350 [Miralax (For Daily Use) -] 17 gm PO DAILY PRN Sodium Phosphate,Atlantic-Dibasic [Fleet Enema] 133 ml RC DAILY PRN 11/27/18 Sulfamethoxazole/Trimethoprim [Bactrim DS -] 1 each PO BID 11/27/18 Review of Systems - Review of Systems Eyes: reports: No Symptoms HENT: reports: No Symptoms Neck: reports: No Symptoms Cardiovascular: reports: No Symptoms Respiratory: reports: No Symptoms Gastrointestinal: reports: No Symptoms Genitourinary: reports: No Symptoms Musculoskeletal: reports: Back Pain Integumentary: reports: Incision (open back wound) Neurological: reports: No Symptoms Endocrine: reports: No Symptoms Hematology/Lymphatic: reports: No Symptoms Psychiatric: reports: No Symptoms Pain Intensity: 8 Physical Exam Vital Signs: Vital Signs Temperature 99.0 F 11/27/18 15:04 Pulse Rate 86 11/27/18 15:04 Respiratory Rate 16 11/27/18 15:04 Blood Pressure 107/62 11/27/18 15:04 O2 Sat by Pulse Oximetry (%) 100 11/27/18 15:04 Constitutional: Yes: Well Nourished, Anxious, Mild Distress Eyes: Yes: WNL HENT: Yes: WNL Neck: Yes: WNL Cardiovascular: Yes: WNL Respiratory: Yes: WNL Gastrointestinal: Yes: WNL Renal/: Yes: WNL Musculoskeletal: Yes: Back Pain Extremities: Yes: WNL Edema: No Peripheral Pulses WNL: Yes Integumentary: Yes: Incision (open surgical wound in the back) Wound/Incision: Yes: Reddened, Unapproximated Neurological: Yes: WNL ...Motor Strength: WNL Psychiatric: Yes: WNL Assessment/Plan 43 yo lady who recently underwent back surgery comes in with wound dehiscence S/ P fall. to go for wound washout and closure today. -blood work, which was done earlier today, reviewed. WNL -pain manaement. -NPO, IV fluids -spinal X-rays pending. -pt is medically cleared with moderate cardiovascular risk for OR. will follow post-op
[2018-11-27] MEDS ORDERED: ACETAMINOPHEN INJECTION 100 ML IVPB ONE ×2 (16:38→19:52)
[2018-11-27] MEDS ORDERED: LIDOCAINE HCL/PF 2% SDV 5ML VIAL ONE (16:54)
[2018-11-27] MEDS ORDERED: fentaNYL CITRATE 250 MCG/5 ML VIAL ONE (16:54)
[2018-11-27] MEDS ORDERED: SUCCINYLCHOLINE CHLORIDE 200 MG/10 ML SYRINGE ONE (16:55)
[2018-11-27] MEDS ORDERED: PROPOFOL 20 ML ONE (16:55)
[2018-11-27] MEDS ORDERED: ROCURONIUM BROMIDE 50 MG/5 ML SYRINGE ONE (16:56)
[2018-11-27] MEDS ORDERED: KETOROLAC TROMETHAMINE 30 MG/1 ML VIAL ONE (17:40)
[2018-11-27] MEDS ORDERED: DEXAMETHASONE SOD PHOSPHATE 4 MG/1 ML VIAL ONE (17:40)
[2018-11-27] MEDS ORDERED: ceFAZolin SODIUM 1 GM VIAL IVPB ONE (17:56)
[2018-11-27] MEDS ORDERED: GLYCOPYRROLATE 0.2 MG/1 ML VIAL ONE ×2 (18:28)
[2018-11-27] MEDS ORDERED: NEOSTIGMINE METHYLSULFATE 0.5 MG/ML - 10 ML MDV ONE (18:28)
--- NOTE | 2018-11-27 18:48 | PN ---
Progress Note (short form) - Note Progress Note: 43F s/p lumbar spine wound incision and debridement POD #0. -Pain control: valium & dilaudid PO; NO NSAID's. -DVT PPx: -Mechanical only: GEN's, SCD's. -Chemical: None. -Incentive spirometry q15 min. -Diet as tolerated. -d/c in PACU; f/u TOV - 8 hours max. -Post-op Ancef x 2 doses. -PT/OT/Rehab, OOB. -WBAT B/L LE. -No bending, lifting (>5 lbs), or twisting for 9-12 months. -Care per medical hospitalist Dr. Denny. -Discharge planning: return to [place] tomorrow after 2nd dose of IV antibiotics; f/u [facility] office; call for appointment; . -Will follow. Jose Alberto Mendez MD (Orthopaedic Surgery).
[2018-11-27] MEDS ORDERED: oxyCODONE HCL 5 MG TABLET PO PRN (18:50)
[2018-11-27] MEDS ORDERED: ONDANSETRON 4 MG/2 ML VIAL IVPUSH PRN (18:50)
[2018-11-27] MEDS ORDERED: HYDROmorphone HCl 2 MG/ML VIAL ONE ×2 (18:50→20:01)
--- NOTE | 2018-11-27 18:50 | OP ---
Operative Note - Note: Operative Date: 11/27/18 Pre-Operative Diagnosis: Lumbar spine wound dehiscence Operation: Incision, irrigation, and debridement lumbar spine wound Post-Operative Diagnosis: Same as Pre-op Surgeon: Jose Alberto Mendez Security [employer] Specialist: Edilberto Mendez Anesthesiologist/ZOOLOGY TECHNICAL OFFICER: Cristo Ascencio Anesthesia: General Specimens Removed: Incision margin excision Estimated Blood Loss (mls): 25 Fluid Volume Replaced (mls): 1,200 (Crystalloid) Operative Report Dictated: Yes
[2018-11-27] MEDS: HYDROmorphone HCL CARPU-JECT 2 MG/1 ML DISP.SYRIN IVPUSH ONE ×2 (18:53→19:15)
[2018-11-27] MEDS ORDERED: ONDANSETRON *ODT* 4 MG TABLET SL PRN (18:56)
[2018-11-27] MEDS: HYDROmorphone HCl 2 MG/ML VIAL IVPUSH ONE ×2 (20:10→21:25)
[2018-11-27] MEDS: diazePAM 5 MG TABLET PO PRN (21:19)
[2018-11-27] MEDS: LACTATED RINGERS SOLUTION 1,000 ML IV SCH (21:30)
[2018-11-27] MEDS: GABAPENTIN 300 MG CAPSULE (FP) PO SCH (22:00)
[2018-11-27] MEDS: SENNOSIDES 8.6MG TABLET (FP) PO SCH (22:00)
[2018-11-27] MEDS: DOCUSATE SODIUM 100 MG CAPSULE (FP) PO SCH (22:00)
[2018-11-27] MEDS ORDERED: diazePAM 5 MG TABLET ONE (23:16)
[2018-11-28] MEDS ORDERED: CEFAZOLIN 1 GM/D5W 1 GM/50 ML BAG IVPB SCH (01:00)
[2018-11-28] MEDS ORDERED: ceFAZolin SODIUM 1 GM VIAL ONE ×2 (01:18→09:52)
[2018-11-28] MEDS ORDERED: DEXTROSE 5%-WATER - 50 ML IVPB ONE ×2 (01:19→09:52)
[2018-11-28] MEDS: CEFAZOLIN 1 GM in DEXTROSE 5%-WATER - 50 ML IVPB SCH ×2 (01:30→09:56)
[2018-11-28] MEDS: GABAPENTIN 300 MG CAPSULE (FP) PO SCH ×3 (06:00→22:00)
[2018-11-28] MEDS ORDERED: PT OWN MED DRAWER 7, Y5N ONE (09:51)
[2018-11-28] MEDS: ACETAMINOPHEN 1000 MG/100 ML VIAL (NON FORMULARY) IVPB SCH (10:02)
[2018-11-28] MEDS: POLYETHYLENE GLYCOL 3350 119 GM BTL PO PRN (13:14)
--- NOTE | 2018-11-28 15:28 | PN ---
Progress Note, Physician Chief Complaint: back pain History of Present Illness: 43 yo ladashley S/P recent back surgery now comes in from rehab with open wound and back pain. Pt says her bed was 'dropped' which resulted in the current condition. denies fever, nausea, vomiting, diarrhea, chest pain, SOB - Current Medication List Current Medications: Active Medications Diazepam (Valium -) 5 mg PO Q6H PRN PRN Reason: MUSCLE SPASMS Last Admin: 11/27/18 21:19 Dose: 5 mg Docusate Sodium (Colace -) 300 mg PO HS [facility] Last Admin: 11/27/18 22:00 Dose: Not Given Gabapentin (Neurontin -) 300 mg PO TID [facility] Last Admin: 11/28/18 13:06 Dose: 300 mg Hydromorphone HCl (Dilaudid -) 4 mg PO Q6H PRN PRN Reason: PAIN LEVEL 6-10 Last Admin: 11/28/18 10:04 Dose: 4 mg Lactated Ringer's (Lactated Ringers Solution) 1,000 mls @ 125 mls/hr IV ASDIR [facility] Last Admin: 11/27/18 21:30 Dose: 200 mls Non-Formulary Medication (L.Acidoph,Paracasei, B.Lactis [Probiotic]) 1 each PO DAILY [facility] Ondansetron HCl (Zofran Injection) 4 mg IVPUSH Q6H PRN PRN Reason: NAUSEA AND/OR VOMITING Ondansetron HCl (Zofran Odt -) 4 mg SL Q8H PRN PRN Reason: NAUSEA Oxycodone HCl (Roxicodone -) 10 mg PO Q4H PRN PRN Reason: PAIN LEVEL 6-10 Stop: 11/28/18 18:49 Polyethylene Glycol (Miralax (For Daily Use) -) 17 gm PO DAILY PRN PRN Reason: CONSTIPATION Last Admin: 11/28/18 13:14 Dose: 17 gm Senna (Senna -) 2 tab PO [facility] Last Admin: 11/27/18 22:00 Dose: Not Given - Objective Vital Signs: Vital Signs Temperature 98.6 F 11/28/18 10:05 Pulse Rate 81 11/28/18 10:05 Respiratory Rate 18 11/28/18 10:05 Blood Pressure 104/54 L 11/28/18 10:05 O2 Sat by Pulse Oximetry (%) 100 06/25/19 04:57 Constitutional: Yes: Well Nourished, Anxious Eyes: Yes: WNL HENT: Yes: WNL Neck: Yes: WNL Cardiovascular: Yes: WNL Respiratory: Yes: WNL Gastrointestinal: Yes: WNL Genitourinary: Yes: WNL Musculoskeletal: Yes: Back Pain Extremities: Yes: WNL Edema: No Peripheral Pulses WNL: Yes Integumentary: Yes: WNL Wound/Incision: Yes: Clean/Dry, Well Approximated, Dressing Dry and Intact Neurological: Yes: WNL, Unresponsive Psychiatric: Yes: WNL Assessment/Plan 43 yo lady who recently underwent back surgery comes in with wound dehiscence S/ P fall. Lumbar spine wound dehiscence S/P Incision, irrigation, and debridement lumbar spine wound POD#1 -pain manaement, incentive spirometry -oral diet. well tolerated. -PT/OT/OOB as tolerated -assessment and plan disucussed with pt plan to send hwer back to rehab tomorrow please call me directly with any questions. Dr arias [phone]
--- NOTE | 2018-11-28 15:39 | PN ---
Progress Note (short form) - Note Progress Note: Anesthesia post op note. POD#1, S/P I&D back wound under GA. VSS. Pat seen and examined, no apparent post anesthesia complications.
[2018-11-28] MEDS: diazePAM 5 MG TABLET PO PRN (16:27)
[2018-11-28] MEDS: LACTATED RINGERS SOLUTION 1,000 ML IV SCH (17:31)
[2018-11-28] MEDS ORDERED: SODIUM CHLORIDE 250 ML IV ONE (20:00)
[2018-11-28] MEDS: SENNOSIDES 8.6MG TABLET (FP) PO SCH (22:00)
[2018-11-28] MEDS: DOCUSATE SODIUM 100 MG CAPSULE (FP) PO SCH (22:00)
[2018-11-29] MEDS: LACTATED RINGERS SOLUTION 1,000 ML IV SCH ×3 (03:00→20:00)
[2018-11-29] MEDS: GABAPENTIN 300 MG CAPSULE (FP) PO SCH ×3 (06:10→22:27)
[2018-11-29] MEDS: diazePAM 5 MG TABLET PO PRN ×3 (08:21→22:27)
[2018-11-29] MEDS: POLYETHYLENE GLYCOL 3350 119 GM BTL PO PRN (12:41)
[2018-11-29] MEDS: SULFAMETHOXAZOLE/TRIMETHOPRIM 800MG/160MG D.S. TABLET PO SCH ×2 (15:22→22:27)
[2018-11-29] MEDS: AMOX TR/POT CLAV 875MG/125MG TABLETS (FP) PO SCH ×2 (15:22→18:28)
--- NOTE | 2018-11-29 16:12 | PATH ---
Surgical Pathology Report Patient Name: ODILIA BENTLEY Med. Rec. #: [id number] /Age/Gender: 1975 (Age: 43) / F Account: [id number] Location: [address] [place] [address] Taken: 11/27/2018 Received: 11/28/2018 Reported: 11/29/2018 Physicians: Edilberto Mendez M.D. Specimen(s) Received TISSUE FROM LUMBAR AREA OF BACK Clinical History Superficial wound infection Final Diagnosis TISSUE FROM LUMBAR AREA OF BACK, EXCISION: SEGMENTS OF SKIN WITH ULCERATION, ACUTE AND CHRONIC INFLAMMATION INVOLVING DERMIS AND SUBCUTANEOUS TISSUE WITH FOCAL FAT NECROSIS AND HISTIOCYTIC REACTION. Electronically Signed Ba Arellano M.D. Gross Description Received in formalin labeled "tissue from lumbar area of back," are 3 carter brown, elliptical, unoriented portions of skin with underlying soft tissue ranging from 5.8 x 1.3 x 0.7 cm to 7.0 x 1.4 x 0.7 cm. The epidermal surfaces display foci of discoloration. Steel Manager sections are submitted in one cassette. /11/28/2018 [facility]/11/28/2018
--- NOTE | 2018-11-29 17:16 | DS ---
Physical Examination Vital Signs: Vital Signs Temperature 98.6 F 11/29/18 08:00 Pulse Rate 81 11/29/18 06:15 Respiratory Rate 18 11/29/18 08:00 Blood Pressure 105/57 L 11/29/18 08:00 O2 Sat by Pulse Oximetry (%) 100 11/28/18 21:00 Constitutional: Yes: Well Nourished Eyes: Yes: WNL HENT: Yes: WNL Neck: Yes: WNL Cardiovascular: Yes: WNL Respiratory: Yes: WNL Gastrointestinal: Yes: WNL Renal/: Yes: WNL Musculoskeletal: Yes: Back Pain Extremities: Yes: WNL Edema: No Peripheral Pulses WNL: Yes Integumentary: Yes: WNL Wound/Incision: Yes: Clean/Dry, Well Approximated, Dressing Dry and Intact Neurological: Yes: WNL Discharge Summary Reason For Visit: S/P SPINAL WOUND, IND Condition: Good - Instructions Disposition: SNF FACILITY - Home Medications Comprehensive Discharge Medication List: Ambulatory Orders Docusate Sodium [Colace -] 300 mg PO HS capsule 11/22/18 Sennosides [Senna -] 2 tab PO HS tablet 11/22/18 HYDROmorphone [Dilaudid -] 4 mg PO Q6H PRN MDD 4 tabs 11/27/18 L.acidoph,Paracasei, B.lactis [Probiotic] 1 each PO DAILY 11/27/18 Lactulose (Oral Use) [Cephulac -] 20 gm PO QID 11/27/18 Ondansetron HCl [Zofran] 4 mg PO Q8H PRN 11/27/18 Polyethylene Glycol 3350 [Miralax 119 gm Btl -] 17 gm PO DAILY PRN 11/27/18 Amox-Tr/K Cl [Augmentin 875-125mg Tablet -] 1 tab PO BID@0800,1730 tablet 11/29 Diazepam [Valium] 5 mg PO Q6H PRN 1 Days #30 tablet MDD 20 mg 11/29/18 Gabapentin [Neurontin -] 300 mg PO TID capsule 11/29/18 Sulfamethoxazole/Trimethoprim [Bactrim DS -] 2 each PO BID tablet 11/29/18
[2018-11-29] MEDS: SENNOSIDES 8.6MG TABLET (FP) PO SCH (22:27)
[2018-11-29] MEDS: DOCUSATE SODIUM 100 MG CAPSULE (FP) PO SCH (22:27)
[2018-11-30] MEDS: GABAPENTIN 300 MG CAPSULE (FP) PO SCH (06:30)
[2018-11-30] MEDS ORDERED: PT OWN MED DRAWER 7, Y5N ONE (09:12)
[2018-11-30] MEDS: AMOX TR/POT CLAV 875MG/125MG TABLETS (FP) PO SCH (09:30)
[2018-11-30] MEDS: SULFAMETHOXAZOLE/TRIMETHOPRIM 800MG/160MG D.S. TABLET PO SCH (09:54)
[2018-11-30 09:59] VITALS: BP 113/71; PULSE 76; TEMP 97.8
--- NOTE | 2018-11-30 10:59 | PN ---
Progress Note, Physician Chief Complaint: back pain History of Present Illness: 43 yo lady S/P recent back surgery now comes in from rehab with open wound and back pain. Pt says her bed was 'dropped' which resulted in the current condition. denies fever, nausea, vomiting, diarrhea, chest pain, SOB - Current Medication List Current Medications: Active Medications Amoxicillin/Clavulanate Potassium (Augmentin - 875mg Tablet) 1 tab PO BID@0800, 1730 [facility] Last Admin: 11/30/18 09:30 Dose: 1 tab Diazepam (Valium -) 5 mg PO Q6H PRN PRN Reason: MUSCLE SPASMS Last Admin: 11/29/18 22:27 Dose: 5 mg Docusate Sodium (Colace -) 300 mg PO HS [facility] Last Admin: 11/29/18 22:27 Dose: 300 mg Gabapentin (Neurontin -) 300 mg PO TID [facility] Last Admin: 11/30/18 06:30 Dose: 300 mg Hydromorphone HCl (Dilaudid -) 4 mg PO Q4H PRN PRN Reason: PAIN LEVEL 6-10 Last Admin: 11/29/18 19:30 Dose: 4 mg Lactated Ringer's (Lactated Ringers Solution) 1,000 mls @ 125 mls/hr IV ASDIR [facility] Last Admin: 11/29/18 20:00 Dose: 125 mls/hr Non-Formulary Medication (L.Acidoph,Paracasei, B.Lactis [Probiotic]) 1 each PO DAILY [facility] Ondansetron HCl (Zofran Injection) 4 mg IVPUSH Q6H PRN PRN Reason: NAUSEA AND/OR VOMITING Last Admin: 11/30/18 10:06 Dose: 4 mg Ondansetron HCl (Zofran Odt -) 4 mg SL Q8H PRN PRN Reason: NAUSEA Polyethylene Glycol (Miralax (For Daily Use) -) 17 gm PO DAILY PRN PRN Reason: CONSTIPATION Last Admin: 11/29/18 12:41 Dose: 17 gm Senna (Senna -) 2 tab PO HS [facility] Last Admin: 11/29/18 22:27 Dose: 2 tab Trimethoprim/Sulfamethoxazole (Bactrim Ds -) 2 each PO BID [facility] Last Admin: 11/30/18 09:54 Dose: 2 each - Objective Vital Signs: Vital Signs Temperature 97.8 F 11/30/18 09:56 Pulse Rate 76 11/30/18 09:56 Respiratory Rate 19 11/30/18 09:56 Blood Pressure 113/71 11/30/18 09:56 O2 Sat by Pulse Oximetry (%) 100 11/29/18 21:00 Constitutional: Yes: Well Nourished, Anxious Eyes: Yes: WNL HENT: Yes: WNL Neck: Yes: WNL Cardiovascular: Yes: WNL Respiratory: Yes: WNL Gastrointestinal: Yes: WNL Genitourinary: Yes: WNL Musculoskeletal: Yes: Back Pain, Joint Stiffness Extremities: Yes: WNL Edema: No Peripheral Pulses WNL: Yes Integumentary: Yes: WNL Wound/Incision: Yes: Clean/Dry, Well Approximated, Dressing Dry and Intact Neurological: Yes: WNL Psychiatric: Yes: WNL Assessment/Plan 43 yo lady who recently underwent back surgery comes in with wound dehiscence S/ P fall. Lumbar spine wound dehiscence S/P Incision, irrigation, and debridement lumbar spine wound POD#2 no complications. -pain manaement, incentive spirometry -oral diet. well tolerated. -PT/OT/OOB as tolerated -assessment and plan disucussed with pt plan to send back to rehab. awaiting insurance auth. -Pt is medically stable for DC to rehab. please call me directly with any questions. Dr arias [phone]
[2018-11-30] MEDS: ACETAMINOPHEN 1000 MG/100 ML VIAL (NON FORMULARY) IVPB SCH (13:22)
[2018-12-01] MEDS ORDERED: LACTOBACILLUS ACIDOPHILUS 1 TABLET PO SCH (10:00)
--- NOTE | 2018-12-04 09:26 | OP ---
Date of Operation: 11/27/2018 Pre-Operative Diagnosis: Lumbar wound dehiscence. Post-Operative Diagnosis: Lumbar wound dehiscence. Procedure Performed: 1. Irrigation and debridement lumbar spine wound. 2. Revision lumbar spine wound with excision of wound margins Surgeon: Jose Alberto Mendez M.D. Asparagus Cutter: Edilberto Mendez M.D. Anesthesiologist: Cristo Ascencio M.D. Anesthesia: General. Position: Prone. Incision: Midline. Specimens Removed: Wound culture swabs; wound margin excision. Drains: None. Estimated Blood Loss: 25cc. Intravenous Fluid: 1200cc crystalloid. Transfusions: None. Complications: None. Bacteriology: None. Closure: No. 2-0 nylon monofilament sutures. Indications: The patient was indicated for the above listed surgical procedure due to early post-opertive wound dehiscence. The patient was identified in the holding area by her armband. A long discussion was held with the patient (in the presence of his family) regarding the risks, benefits, and alternatives of the above-listed procedure. The risks include, but are not limited to: Pain, bleeding, infection, damage to surrounding structures (including nerves, blood vessels, skin, ligaments, tendons, and bone), wound complications, failure of hardware/implants/reduction , need for further surgery, blood clots, myocardial infarction, cerebrovascular injury, pulmonary embolism, anesthesia complications, limp, numbness, paresthesias, loss of function, and . Benefits may include reduction of: back pain, radiculopathy, neurogenic claudication, and improved overall mobility and function. Alternatives include no surgery. All questions were answered. The patient understood and agreed to the procedure. Informed consent was obtained, witnessed, and verified. The patient's lumbar spine was marked. She was then taken to the operating room after being assessed by the anesthesia and nursing staff. Procedure: The patient was brought into the operating room, where anesthesia was then administered. No antibiotic was given. A time-out was done led by , the attending surgeon. An indwelling Viera catheter was successfully inserted by the nursing team. Intra-operative neuromonitoring was not utilized. The patient was then safely placed in a prone position with all bony prominences well-padded on a Ian frame. The arms were placed on well-padded arm boards and maintained with standard forward flexion, abduction, and external rotation of the shoulders, and flexion of the elbows. Special attention was given to the safe positioning of the cervical spine. The patients eyes, breasts, and belly were all free. The table was placed in 6 degrees of reverse Trendelenburg position to avoid ophthalmic vein congestion. No fluoroscopic imaging was used for the case. The skin was prepped in standard, sterile fashion using betadine prep & scrub, wiped off with alcohol, and DuraPrep applied. Standard window draping was utilized. Appropriate pre-operative imaging, including lumbar spine x-rays, CT, and MRI, were available throughout the case for intraoperative evaluation. A time-out was repeated, and the case began. The previous midline longitudinal incision was opened using Metzenbaum scissors. Dissection was taken through the subcuatenous layer down to fascia. The fascial closure was intact. Superficial fibrinous exudate was noted along the superficial inner margin of the wound. No gross infection nor collection of purulence was seen. There was no malodor. The tissues otherwise appeared healthy and well vascularized. The previously used superficial Biosyn and vicryl sutures were removed. The wound was copiously irrigated. Culture swabs was dragged through the wound and sent to the lab for analysis. The incision margins were excised in conservative fashion, excising only the minimal necessary tissue to adequately debride the wound. Hemostasis was assured using unipolar electrocautery. Closure: Due to excellent hemostasis, no drain was utilized. The wound was repeatedly thoroughly irrigated with normal saline solution. The deep and superficial subcutaneous tissues, along with the skin, were closed using 2-0 nylon sutures in Lautenbach vertical mattress fashion. The wound was covered in Xeroform followed by 4x4 gauze pads. The wound was then sealed with adhesive Ioban. The sponge and needle counts were correct at the end of the case and I, the attending surgeon, was present and scrubbed throughout the case. The patient was transferred to a hospital bed. The patient was then transferred to the recovery room in stable condition, as per the anesthesia team, having tolerated the procedure well. IV antibiotics were given at the end of the case. Overall comment: Operation went well with no complications. All appropriate goals were achieved in the execution of this operative event. MD RG [email or web address]/[id number] MTDD
== END 2018-11-30 12:28 | DRG 909 ==
LOC: JASUSAT 14:51 → J6S 23:45
PROVIDERS: ADMIT Orthopaedic Surgery Orthopaedic Surgery of the Spine; ATTEND Orthopaedic Surgery Orthopaedic Surgery of the Spine
PROC: 3E10X8Z Irrigation of Skin and Mucous Membranes using Irrigating Substance (ICD-10-PCS; 2018-11-27)
PROC: 0JD70ZZ Extraction of Back Subcutaneous Tissue and Fascia, Open Approach (ICD-10-PCS; principal; 2018-11-27 15:00)
DX: T81.32XA Disruption of internal operation (surgical) wound, not elsewhere classified, initial encounter (principal); Y83.8 Other surgical procedures as the cause of abnormal reaction of the patient, or of later complication, without mention of misadventure at the time of the procedure
CPT/HCPCS: 36415; 72100-TC-FY; 84703; 86850; 86900; 86901; 87070; 87186; 87205; 88305-TC; 94760; 97116-GP; 97161-GP; J0131

== ENCOUNTER 2020-11-25 19:48 | Emergency (ER) | payer BC, OTHER ==
[2020-11-25 20:04] VITALS: BP 140/79; PULSE 87; TEMP 98.2; BMI 26.6
[2020-11-25 22:21] LABS: BASO % 0.5 % (0-2.0); EOS % 3.2 % (0-4.5); HEMATOCRIT 38.1 % (32.4-45.2); HEMOGLOBIN 12.7 GM/dL (10.7-15.3); LYMPH % 36.1 % (8-40); MCH 30.4 pg (25.7-33.7); MCHC 33.3 g/dl (32.0-36.0); MEAN CELL VOLUME 91.3 fl (80-96); MEAN PLT VOLUME 8.8 fl (7.5-11.1); MONO % 9.5 % (3.8-10.2); NEUT % 50.7 % (42.8-82.8); PLATELET COUNT 271 10^3/uL (134-434); RBC 4.18 M/mm3 (3.60-5.2); RDW 13.6 % (11.6-15.6); WHITE BLOOD COUNT 12.9 K/mm3 (4.0-10.0)
[2020-11-25 22:28] LABS: INR 0.93 (0.83-1.09); PROTHROMBIN TIME (PATIENT) 11.3 SEC (9.7-13.0)
[2020-11-25 22:31] LABS: CHLORIDE 103 mmol/L (98-107); SODIUM 136 mmol/L (136-145)
[2020-11-25 22:34] LABS: ALBUMIN 4.5 g/dl (3.4-5.0); CALCIUM 9.6 mg/dL (8.5-10.1)
[2020-11-25 22:35] LABS: ANION GAP 10 MMOL/L (8-16); BLOOD UREA NITROGEN 12.2 mg/dL (7-18); CO2 23 mmol/L (21-32); GLUCOSE,RANDOM 90 mg/dL (74-106)
[2020-11-25 22:37] LABS: SGOT/AST 26 U/L (15-37); SGPT/ALT 35 U/L (13-61)
[2020-11-25 22:38] LABS: CREATININE 0.6 mg/dL (0.55-1.3)
[2020-11-25 22:39] LABS: TOT PROT 8.4 g/dl (6.4-8.2)
[2020-11-25 22:40] LABS: ALK PHOS 96 U/L (45-117)
[2020-11-25 22:41] LABS: BILIRUBIN,TOTAL 0.4 mg/dL (0.2-1)
== END 2020-11-26 00:06 | disposition left against medical advice (07) ==
LOC: JER 19:48
DX: R07.9 Chest pain, unspecified (principal); R06.02 Shortness of breath
CPT/HCPCS: 36415; 71045-TC-FY; 80053; 82550; 84484; 84703; 85025; 85610; 85730; 86850; 86900; 86901; 93005; 93010; 99285-25; C9803; U0003; U0005